=== PATIENT | female | born 1955 | race Caucasian/White ===

== ENCOUNTER → 2018-05-31 14:20 | Outpatient (CLI) | payer MEDICARE, SELFPAY ==
--- NOTE | 2018-05-31 | DI.RAD.S_ITS ---
PROCEDURE: XR SHOULDER RT MIN 2V INDICATIONS: C-SPINE/R SHOULDER PAIN TECHNIQUE: 3 views of the shoulder were acquired. COMPARISON: None. FINDINGS: Bones: No fractures or dislocations, but there is severe degenerative osteoarthritic change at the glenohumeral joint with near [id number]-lr-[id number] articulation. Prior a.c. joint acromioplasty appears to have been performed. No suspicious bony lesions. Visualized ribs appear intact. Soft tissues: No suspicious soft tissue calcifications. IMPRESSION: Very severe glenohumeral joint osteoarthritis with near [id number] articulation, prior right shoulder acromioplasty at the a.c. joint. Dictated by: Modesto Waters M.D. on 05/31/2018 at 15:08 Approved by: Modesto Waters M.D. on 05/31/2018 at 15:08
--- NOTE | 2018-05-31 | DI.RAD.S_ITS ---
PROCEDURE: XR CERVICAL SPINE 2V OR 3V INDICATIONS: CSPINE/R SHOULDER PAIN TECHNIQUE: 3 view(s) of the cervical spine were acquired. COMPARISON: None. FINDINGS: Bones: No fractures or dislocations to the T1 level. The lateral masses of C1 appear intact on the odontoid view. No suspicious bony lesions. Prior cervical spine plain films are not available for review. Ral projection there may be congenital or acquired fusion along the left facet joints, seen from the T2 level inferiorly to the T5 level on the lateral projection. On the lateral projection there is a osseous fusion between C4 and C5, without operative changes and therefore this could represent a congenital anomaly contributing to reduced mobility through the neck. Moderate C5-6 and C6-7 degenerative disc disease is present. Soft tissues: No prevertebral soft tissue swelling. IMPRESSION: Moderate to moderately severe degenerative disc disease and facet osteoarthritis along the cervical spine best seen from C4-C7, with osseous fusion at the C45 intervertebral disc space and what appears to be asymmetric left-sided facet joint effusion from C2-C5. Dictated by: Modesto Waters M.D. on 05/31/2018 at 15:05 Approved by: Modesto Waters M.D. on 05/31/2018 at 15:07
== END ==
PROVIDERS: PCP Family Medicine; Visit Provider Family Medicine
DX: M25.511 Pain in right shoulder (principal); M50.322 Other cervical disc degeneration at C5-C6 level; M47.812 Spondylosis without myelopathy or radiculopathy, cervical region; M19.011 Primary osteoarthritis, right shoulder
CPT/HCPCS: 72040; 73030

== ENCOUNTER → 2018-07-05 09:54 | Outpatient (CLI) | payer MEDICARE, SELFPAY ==
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
== END ==
PROVIDERS: PCP Family Medicine; Visit Provider Family Medicine
DX: M54.2 Cervicalgia (principal); M47.812 Spondylosis without myelopathy or radiculopathy, cervical region; E04.9 Nontoxic goiter, unspecified; Z98.1 Arthrodesis status
CPT/HCPCS: 72141

== ENCOUNTER → 2018-07-09 13:59 | Outpatient (CLI) | payer MEDICARE, SELFPAY ==
--- NOTE | 2018-07-09 | DI.US.S_ITS ---
PROCEDURE: US THYROID INDICATIONS: GOITER TECHNIQUE: Real-time scanning was performed of the thyroid gland, with image documentation. COMPARISON: None. FINDINGS: Right: Thyroid lobe measures 3.3 x 0.8 x 1.1 cm, and is normal in echotexture. Left: Thyroid lobe measures 8.1 x 3.2 x 3.7 cm, and is diffusely heterogeneous and multinodular in echotexture. Isthmus: 4.0 mm thick. Nodule number: 1 Location: Right inferior Size: 0.8 x 0.3 x 0.8 cm. Composition: Predominantly solid Echogenicity: Hypoechoic Shape: wider than tall. Margins: Smooth Echogenic foci: None Total points: 4 ACR TI-RADS category: Moderately suspicious IMPRESSION: Small moderately suspicious right thyroid nodule. Followup ultrasound recommended. Multinodular appearance of the left thyroid gland without a definitive focal nodule. ACR TI-RADS definitions and recommendations: TI-RADS 1 (benign): 0 points. FNA not needed. TI-RADS 2 (not suspicious): 2 points. FNA not needed. TI-RADS 3 (mildly suspicious): 3 points. * FNA if 2.5 cm or larger, follow up if 1.5 cm or larger (at 1, 3, and 5 years). TI-RADS 4 (moderately suspicious): 4-6 points. * FNA if 1.5 cm or larger, follow up if 1 cm or larger (at 1, 2, 3, and 5 years). TI-RADS 5 (highly suspicious): 7 points or more. * FNA if 1 cm or larger, follow up if 0.5 cm or larger (every year for 5 years). Dictated by: Nimesh VIEYRA Interpreted: Lakisha Quintana MD on 07/09/2018 at 16:45 Approved by: Lakisha Quintana M.D. on 07/09/2018 at 17:00
--- NOTE | 2018-07-09 | DI.MG.S_ITS ---
BILATERAL DIGITAL SCREENING MAMMOGRAM 3D/2D WITH CAD: 07/09/2018 CLINICAL: Routine screening. Family history of breast cancer. Comparison is made to exams dated: 05/27/2016 mammogram, 05/14/2015 mammogram, and 05/26/2014 mammogram - [facility]. The tissue of both breasts is predominantly fatty. Current study was also evaluated with a Computer Aided Detection (CAD) system. No significant masses, calcifications, or other findings are seen in either breast. There has been no significant interval change. IMPRESSION: NEGATIVE There is no mammographic evidence of malignancy. A 1 year screening mammogram is recommended. This exam was interpreted at Station ID: [id number]. NOTE: For mammograms, a report in lay terms will be sent to the patient. Approximately 15% of breast malignancies will not be visualized mammographically. In the management of a palpable breast mass, a negative mammogram must not discourage biopsy of a clinically suspicious lesion. Electronically Signed By: Jimmy rainey/horacio:07/09/2018 20:16:26 letter sent: Normal Exam ACR BI-RADS Category 1: Negative 3341F
== END ==
PROVIDERS: PCP Family Medicine; Visit Provider Family Medicine
DX: Z12.31 Encounter for screening mammogram for malignant neoplasm of breast (principal); Z80.3 Family history of malignant neoplasm of breast; E04.9 Nontoxic goiter, unspecified; E03.9 Hypothyroidism, unspecified; M54.2 Cervicalgia
CPT/HCPCS: 76536; 77063; 77067

== ENCOUNTER → 2019-01-24 16:26 | Outpatient (CLI) | payer MEDICARE, SELFPAY ==
--- NOTE | 2019-01-24 | DI.RAD.S_ITS ---
PROCEDURE: XR HIP W PEL IF DONE RT 2V INDICATIONS: RIGHT HIP PAIN TECHNIQUE: 2 views of the hip were acquired. COMPARISON: None. FINDINGS: Bones: No fractures or dislocations. No suspicious bony lesions. The visualized pelvic ring appears intact. Mild right hip joint degeneration. Soft tissues: No suspicious soft tissue calcifications or masses. IMPRESSION: Mild right hip joint degeneration Dictated by: Blaze Floyd M.D. on 01/24/2019 at 17:14 Approved by: Blaze lFoyd M.D. on 01/24/2019 at 17:16
== END ==
PROVIDERS: PCP Family Medicine; Visit Provider Family Medicine
DX: M25.551 Pain in right hip (principal); M16.11 Unilateral primary osteoarthritis, right hip
CPT/HCPCS: 73502

== ENCOUNTER → 2019-02-14 11:55 | Outpatient (CLI) | payer MEDICARE, SELFPAY ==
[2019-02-14 12:50] LABS: BUN Creatinine Ratio 28.6 (6-22); Blood Urea Nitrogen 20 mg/dL (7-17); Calcium 9.7 mg/dL (8.4-10.2); Carbon Dioxide 28 mmol/L (22-32); Chloride 105 mmol/L (98-107); Estimated Glomerular Filt Rate > 60.0 mL/min (>60); Glucose 92 mg/dL (80-110); HEMOLYSIS < 15 (0-50); Potassium 4.7 mmol/L (3.4-5.1); Sodium 141 mmol/L (137-145)
--- NOTE | 2019-02-14 13:36 | DI.CT.S_ITS ---
PROCEDURE: CT SOFT TISSUE NECK W CON INDICATIONS: IODINE DEFICIENCY RELATED GOITER TECHNIQUE: After the administration of intravenous contrast, 3.0 mm axial sections acquired from the sella to the aortic arch. Additional oblique axial 3.0 mm sections acquired through the pharynx. 3 mm thick coronal and sagittal reformats were generated. For radiation dose reduction, the following was used: automated exposure control. COMPARISON: [facility], , THYROID, 07/09/2018, 15:06. FINDINGS: Image quality: Excellent. Lymph nodes: No enlarged lymph nodes seen throughout the neck. Vessels: Visualized vasculature appears patent. Neck spaces: The oropharynx, nasopharynx, and pharynx demonstrate no mucosal lesions. The vocal cords, false vocal cords, pyriform sinuses, epiglottis, vallecula, and tongue base all appear normal. Extramucosal spaces appear unremarkable. Glands: The parotid and submandibular glands appear normal. There is a large, heterogeneous mass arising from the left thyroid lobe measuring 3.8 cm anterior posterior, 4.7 cm transverse and 8.1 cm cephalocaudal. There is mass effect causing deviation of trachea to the right. The mass is seen extending inferiorly to the superior mediastinum.. Miscellaneous: Visualized brain and orbits appear normal. Lung apices appear clear. Superficial soft tissues appear normal. Bones: No suspicious bony lesions. There is degenerative disc and facet disease in cervical spine. Visualized sinuses and mastoids appear unremarkable. IMPRESSION: 1. A large heterogeneous mass arising from the left thyroid gland extending to the superior mediastinum measuring 3.8 x 4.7 x 8.1 cm. 2. No cervical lymphadenopathy. Dictated by: Avel Brown M.D. on 02/14/2019 at 15:35 Approved by: Avel Brown M.D. on 02/14/2019 at 17:58
== END ==
PROVIDERS: PCP Family Medicine; Visit Provider Family Medicine
DX: Z01.812 Encounter for preprocedural laboratory examination (principal); Z01.818 Encounter for other preprocedural examination; E01.0 Iodine-deficiency related diffuse (endemic) goiter
CPT/HCPCS: 36415; 70491; 80048; 82565; 84520; Q9967

== ENCOUNTER → 2019-04-19 14:46 | Outpatient (CLI) | payer MEDICARE, SELFPAY ==
[2019-04-19 15:31] LABS: Add Manual Diff / Slide Review NO; Basophils Absolute Auto 100 /uL (0-100); Eosinophils Absolute Auto 100 /uL (0-450); Eosinophils Percent Auto 2.1 % (2-4); Hematocrit 39.6 % (36-46); Hemoglobin 13.6 g/dL (12.0-16.0); Lymphocytes Absolute Auto 2100 /uL (1100-4500); Lymphocytes Percent Auto 36.5 % (25-40); Mean Corpuscular HGB Conc 34.3 % (30-36); Mean Corpuscular Hemoglobin 30.1 PG (26-34); Mean Corpuscular Volume 87.7 fL (80-100); Monocytes Absolute Auto 300 /uL (0-900); Neutrophils Absolute Auto 3200 /uL (1500-7000); Neutrophils Percent Auto 54.4 % (50-75); Platelet Count 269 X10^3/uL (150-400); Red Blood Cell Count 4.51 X10^6/uL (4.0-5.2); Red Cell Distribution Width 12.8 % (11.6-14.8); White Blood Cell Count 5.8 X10^3/uL (4.5-11.0)
[2019-04-19 15:47] LABS: Alanine Aminotransferase 18 IU/L (<35); Albumin 4.3 g/dL (3.5-5.0); Albumin Globulin Ratio 1.4 (1.0-2.8); Alkaline Phosphatase 84 U/L (38-126); Aspartate Aminotransferase 26 IU/L (14-36); BUN Creatinine Ratio 28.6 (6-22); Bilirubin Total 0.5 mg/dL (0.2-1.3); Blood Urea Nitrogen 20 mg/dL (7-17); Calcium 9.5 mg/dL (8.4-10.2); Carbon Dioxide 27 mmol/L (22-32); Chloride 103 mmol/L (98-107); Estimated Glomerular Filt Rate > 60.0 mL/min (>60); Glucose 87 mg/dL (80-110); HEMOLYSIS < 15 (0-50); Sodium 139 mmol/L (137-145); Total Protein 7.3 g/dL (6.3-8.2)
[2019-04-19 17:29] LABS: Thyroid Stimulating Hormone < 0.02 uIU/mL (0.47-4.68)
[2019-04-19 18:08] LABS: Cancer Antigen 125 < 6 U/mL (0-35)
[2019-04-23 15:29] LABS: Human HE4 Antigen 33 pmol/L
== END ==
PROVIDERS: PCP Family Medicine; Visit Provider Family Medicine
DX: E04.8 Other specified nontoxic goiter (principal); N83.209 Unspecified ovarian cyst, unspecified side; R19.09 Other intra-abdominal and pelvic swelling, mass and lump
CPT/HCPCS: 36415; 80053; 84443; 85025; 86304; 86305

== ENCOUNTER → 2019-08-08 12:12 | Outpatient (CLI) | payer MEDICARE, SELFPAY ==
[2019-08-08 13:45] LABS: Cancer Antigen 125 < 5.5 U/mL (0-35)
[2019-08-10 11:35] LABS: Human Epididymis Prot 4 45.7 pmol/L (0.0-96.5)
== END ==
PROVIDERS: PCP Family Medicine
DX: N83.299 Other ovarian cyst, unspecified side (principal); R19.09 Other intra-abdominal and pelvic swelling, mass and lump; N83.209 Unspecified ovarian cyst, unspecified side
CPT/HCPCS: 36415; 86304; 86305

== ENCOUNTER → 2019-11-15 11:01 | Outpatient (CLI) | payer MEDICARE, SELFPAY ==
[2019-11-15 12:44] LABS: Add Manual Diff / Slide Review NO; Basophils Absolute Auto 100 /uL (0-100); Eosinophils Absolute Auto 100 /uL (0-450); Eosinophils Percent Auto 2.4 % (2-4); Hematocrit 41.6 % (36-46); Hemoglobin 13.9 g/dL (12.0-16.0); Lymphocytes Absolute Auto 2000 /uL (1100-4500); Lymphocytes Percent Auto 33.2 % (25-40); Mean Corpuscular HGB Conc 33.5 % (30-36); Mean Corpuscular Hemoglobin 30.9 PG (26-34); Mean Corpuscular Volume 92.2 fL (80-100); Monocytes Absolute Auto 200 /uL (0-900); Monocytes Percent Auto 3.8 % (3-14); Neutrophils Absolute Auto 3600 /uL (1500-7000); Neutrophils Percent Auto 59.6 % (50-75); Platelet Count 292 X10^3/uL (150-400); Red Blood Cell Count 4.51 X10^6/uL (4.0-5.2); Red Cell Distribution Width 12.6 % (11.6-14.8); White Blood Cell Count 6.1 X10^3/uL (4.5-11.0)
[2019-11-15 12:55] LABS: Alanine Aminotransferase 20 IU/L (<35); Albumin 4.3 g/dL (3.5-5.0); Albumin Globulin Ratio 1.4 (1.0-2.8); Alkaline Phosphatase 86 U/L (38-126); Aspartate Aminotransferase 27 IU/L (14-36); BUN Creatinine Ratio 30.2 (6-22); Bilirubin Total 0.3 mg/dL (0.2-1.3); Blood Urea Nitrogen 26 mg/dL (7-17); Calcium 9.6 mg/dL (8.4-10.2); Carbon Dioxide 28 mmol/L (22-32); Chloride 104 mmol/L (98-107); Estimated Glomerular Filt Rate > 60.0 mL/min (>60); Glucose 107 mg/dL (80-110); HEMOLYSIS < 15 (0-50); Magnesium 2.1 mg/dL (1.6-2.3); Potassium 4.5 mmol/L (3.4-5.1); Sodium 140 mmol/L (137-145); Total Protein 7.3 g/dL (6.3-8.2)
[2019-11-15 13:40] LABS: Vitamin B12 871 pg/mL (239-931)
[2019-11-15 15:45] LABS: T4 Total Thyroxine 8.25 ug/dL (5.5-11.0)
== END ==
PROVIDERS: PCP Family Medicine; Referring Provider Family Medicine; Visit Provider Family Medicine
DX: E53.8 Deficiency of other specified B group vitamins (principal); E55.9 Vitamin D deficiency, unspecified; E03.9 Hypothyroidism, unspecified
CPT/HCPCS: 36415; 80053; 82607; 83001; 83735; 84436; 84443; 85025

== ENCOUNTER → 2019-12-28 12:09 | Outpatient (CLI) | payer MEDICARE, SELFPAY ==
--- NOTE | 2019-12-28 | DI.US.S_ITS ---
PROCEDURE: US PELVIC COMPLETE INDICATIONS: OVARIAN CYST TECHNIQUE: Real-time scanning was performed of the pelvic organs, with image documentation. Additional endovaginal scanning was necessary due to incomplete visualization of the adnexal and endometrial structures by transabdominal scanning. COMPARISON: [facility], US, US PELVIC COMPLETE, 04/19/2019, 16:47. [facility], US, PELVIC COMPLETE, 08/08/2019, 11:48. FINDINGS: Transabdominal scanning: Limited scanning through the kidneys shows no hydronephrosis. No pathologic free abdominal or pelvic fluid. Endovaginal scanning: Uterus is surgically absent Ovaries: A midline ovary is noted although unclear if this is right or left ovary. It measures 6.5 x 4.7 x 5.7 cm. Minimally complex cyst with internal echoes , possibly septation, are noted measuring up to 7.2 x 4.5 x 5.3 cm. IMPRESSION: Large (midline) cystic lesion presumably ovarian in origin as before, technically nonspecific. Cannot exclude cystic ovarian neoplasm and therefore recommend surgical consultation, possibly laparoscopic evaluation. Consider biochemical correlation with CA 125 Dictated by: Blaze Floyd M.D. on 12/28/2019 at 16:38 Approved by: Blaze Floyd M.D. on 12/28/2019 at 16:43
== END ==
PROVIDERS: PCP Family Medicine; Referring Provider Family Medicine; Visit Provider Family Medicine
DX: N83.201 Unspecified ovarian cyst, right side (principal); Z90.710 Acquired absence of both cervix and uterus
CPT/HCPCS: 76830; 76856

== ENCOUNTER → 2020-01-02 10:02 | Outpatient (CLI) | payer MEDICARE, SELFPAY ==
[2020-01-02 10:26] LABS: Hematocrit 41.8 % (36-46); Mean Corpuscular HGB Conc 33.5 % (30-36); Mean Corpuscular Hemoglobin 30.8 PG (26-34); Mean Corpuscular Volume 91.9 fL (80-100); Platelet Count 268 X10^3/uL (150-400); Red Blood Cell Count 4.54 X10^6/uL (4.0-5.2); Red Cell Distribution Width 12.7 % (11.6-14.8); White Blood Cell Count 5.3 X10^3/uL (4.5-11.0)
[2020-01-02 10:37] LABS: BUN Creatinine Ratio 20.7 (6-22); Blood Urea Nitrogen 17 mg/dL (7-17); Calcium 9.7 mg/dL (8.4-10.2); Carbon Dioxide 31 mmol/L (22-32); Chloride 105 mmol/L (98-107); Estimated Glomerular Filt Rate > 60.0 mL/min (>60); Glucose 101 mg/dL (80-110); HEMOLYSIS < 15 (0-50); Potassium 4.9 mmol/L (3.4-5.1); Sodium 141 mmol/L (137-145)
[2020-01-02 10:53] LABS: Neutrophils Absolute Manual 2809 /uL (3000-5900); RBC Morphology Normal Morphology; Total Cells Counted 100
[2020-01-02 11:39] LABS: Thyroid Stimulating Hormone 0.874 uIU/mL (0.47-4.68)
== END ==
PROVIDERS: PCP Family Medicine; Visit Provider Obstetrics & Gynecology Gynecology
DX: E03.9 Hypothyroidism, unspecified (principal)
CPT/HCPCS: 36415; 80048; 84443; 85025

== ENCOUNTER → 2020-04-09 13:05 | Outpatient (CLI) | payer MEDICARE, SELFPAY ==
--- NOTE | 2020-04-09 | DI.MRI.S_ITS ---
PROCEDURE: MR SHOULDER RT WO CON INDICATIONS: Pain in right shoulder TECHNIQUE: Noncontrast oblique coronal T2 fast spin echo with fat saturation, oblique sagittal T1 spin echo and T2 fast spin echo with fat saturation, axial T1 spin echo and T2 fast spin echo with fat saturation through the shoulder. COMPARISON: None. FINDINGS: Image quality: Excellent. Rotator cuff: There is full-thickness tear of the supraspinatus tendon. There is no tendon retraction. High-grade partial thickness tear and tendinitis of the infraspinatus and subscapularis tendons Sagittal images demonstrate mild supraspinatus muscle atrophy. Bones and bursae: No bone marrow contusions or fractures. Severe osteoarthritis of the glenohumeral joint with severe loss of cartilage and subchondral cyst formation. Mild remodeling and deformity of of humeral head. Mild acromioclavicular joint degeneration is present. The acromion demonstrates conventional anatomy, without an os acromiale. There is a small glenohumeral joint effusion. No pathologic subacromial-subdeltoid or subcoracoid bursal fluid is present. Capsule and soft tissues: In the absence of intra-articular contrast, there is degenerative labral tear. The glenohumeral ligaments appear intact. The long head of the biceps tendon demonstrates normal location and morphology. The rotator interval appears normal, without fibrosis. The coracohumeral ligament is normal in thickness. IMPRESSION: 1. Full-thickness tear of the supraspinatus tendon. There is mild supraspinatus muscle atrophy. 2. Partial-thickness tear and tendinitis of the infraspinatus and subscapularis tendons. 3. Severe osteoarthritis of the glenohumeral joint. 4. Degenerative labral tear. 5. Small glenohumeral joint effusion. Dictated by: Avel Brown M.D. on 04/09/2020 at 13:48 Approved by: Avel Brown M.D. on 04/09/2020 at 18:37
[2020-04-09 16:03] LABS: Add Manual Diff / Slide Review NO; Basophils Absolute Auto 100 /uL (0-100); Basophils Percent Auto 1.8 % (0-2); Eosinophils Absolute Auto 100 /uL (0-450); Eosinophils Percent Auto 2.4 % (2-4); Hematocrit 41.8 % (36-46); Hemoglobin 13.8 g/dL (12.0-16.0); Lymphocytes Absolute Auto 2100 /uL (1100-4500); Lymphocytes Percent Auto 38.5 % (25-40); Mean Corpuscular Hemoglobin 29.8 PG (26-34); Mean Corpuscular Volume 90.3 fL (80-100); Monocytes Absolute Auto 300 /uL (0-900); Monocytes Percent Auto 5.9 % (3-14); Neutrophils Absolute Auto 2800 /uL (1500-7000); Neutrophils Percent Auto 51.4 % (50-75); Platelet Count 300 X10^3/uL (150-400); Red Blood Cell Count 4.63 X10^6/uL (4.0-5.2); White Blood Cell Count 5.5 X10^3/uL (4.5-11.0)
[2020-04-09 16:16] LABS: Alanine Aminotransferase 16 IU/L (<35); Albumin 4.4 g/dL (3.5-5.0); Albumin Globulin Ratio 1.6 (1.0-2.8); Alkaline Phosphatase 93 U/L (38-126); Aspartate Aminotransferase 26 IU/L (14-36); BUN Creatinine Ratio 26.3 (6-22); Bilirubin Total 0.2 mg/dL (0.2-1.3); Blood Urea Nitrogen 20 mg/dL (7-17); Calcium 9.4 mg/dL (8.4-10.2); Carbon Dioxide 26 mmol/L (22-32); Chloride 106 mmol/L (98-107); Estimated Glomerular Filt Rate > 60.0 mL/min (>60); Globulin 2.8 g/dL (1.7-4.1); Glucose 95 mg/dL (80-110); HEMOLYSIS < 15 (0-50); Potassium 4.4 mmol/L (3.4-5.1); Sodium 137 mmol/L (137-145); Total Protein 7.2 g/dL (6.3-8.2)
[2020-04-09 16:49] LABS: Free T3, Triiodothyronine Free 3.23 pg/mL (2.77-5.27); Free T4, Direct Thyroxine 1.31 ng/dL (0.78-2.19)
[2020-04-09 17:02] LABS: Thyroid Stimulating Hormone 0.316 uIU/mL (0.47-4.68)
== END ==
PROVIDERS: PCP Family Medicine; Referring Provider Family Medicine; Visit Provider Family Medicine
DX: M25.511 Pain in right shoulder (principal); M75.121 Complete rotator cuff tear or rupture of right shoulder, not specified as traumatic; M19.011 Primary osteoarthritis, right shoulder; M25.411 Effusion, right shoulder; S43.491A Other sprain of right shoulder joint, initial encounter; E53.8 Deficiency of other specified B group vitamins; E03.9 Hypothyroidism, unspecified; E55.9 Vitamin D deficiency, unspecified; R53.81 Other malaise; Z79.899 Other long term (current) drug therapy
CPT/HCPCS: 36415; 73221; 80053; 84439; 84443; 84481; 85025

== ENCOUNTER → 2020-07-03 16:52 | Outpatient (CLI) | payer MEDICARE, SELFPAY ==
--- NOTE | 2020-07-03 16:57 | DI.MG.S_ITS ---
BILATERAL DIGITAL SCREENING MAMMOGRAM 3D/2D WITH CAD: 07/03/2020 CLINICAL: Routine screening. Family history of breast cancer. Comparison is made to exams dated: 07/09/2018 mammogram - [facility], 05/27/2016 mammogram, and 05/14/2015 mammogram - [facility]. There are scattered fibroglandular elements in both breasts. Current study was also evaluated with a Computer Aided Detection (CAD) system. No significant masses, calcifications, or other findings are seen in either breast. There has been no significant interval change. IMPRESSION: NEGATIVE There is no mammographic evidence of malignancy. A 1 year screening mammogram is recommended. This exam was interpreted at Station ID: [id number]. NOTE: For mammograms, a report in lay terms will be sent to the patient. Approximately 15% of breast malignancies will not be visualized mammographically. In the management of a palpable breast mass, a negative mammogram must not discourage biopsy of a clinically suspicious lesion. Electronically Signed By: Jimmy rainey/horacio:07/03/2020 17:31:29 letter sent: Normal Exam ACR BI-RADS Category 1: Negative 3341F
== END ==
PROVIDERS: PCP Family Medicine; Referring Provider Family Medicine; Visit Provider Family Medicine
DX: Z12.31 Encounter for screening mammogram for malignant neoplasm of breast (principal); Z80.3 Family history of malignant neoplasm of breast
CPT/HCPCS: 77063; 77067

== ENCOUNTER → 2020-09-21 10:45 | Outpatient (CLI) | payer MEDICARE, SELFPAY ==
[2020-09-21 12:11] LABS: Add Manual Diff / Slide Review NO; Basophils Absolute Auto 100 /uL (0-100); Basophils Percent Auto 1.5 % (0-2); Eosinophils Absolute Auto 200 /uL (0-450); Hematocrit 38.8 % (36-46); Hemoglobin 13.3 g/dL (12.0-16.0); Lymphocytes Absolute Auto 1800 /uL (1100-4500); Lymphocytes Percent Auto 32.7 % (25-40); Mean Corpuscular HGB Conc 34.2 % (30-36); Mean Corpuscular Hemoglobin 30.6 PG (26-34); Mean Corpuscular Volume 89.4 fL (80-100); Monocytes Absolute Auto 300 /uL (0-900); Monocytes Percent Auto 5.7 % (3-14); Neutrophils Absolute Auto 3100 /uL (1500-7000); Neutrophils Percent Auto 57.1 % (50-75); Platelet Count 276 X10^3/uL (150-400); Red Blood Cell Count 4.33 X10^6/uL (4.0-5.2); White Blood Cell Count 5.4 X10^3/uL (4.5-11.0)
[2020-09-21 12:13] LABS: Appearance Urine UA CLEAR; Bilirubin Urine UA NEGATIVE (NEGATIVE); Color Urine UA YELLOW; Glucose Urine UA NEGATIVE (Negative); Ketones Urine UA NEGATIVE (NEGATIVE); Leukocyte Esterase Urine UA TRACE (NEGATIVE); Nitrite Urine UA NEGATIVE (Negative); Occult Blood Urine UA NEGATIVE (Negative); Protein Urine UA NEGATIVE (Negative); Specific Gravity Urine UA 1.015 (1.000-1.035); Urobilinogen Urine UA 0.2 E.U./dL (0.2)
[2020-09-21 12:15] LABS: Bacteria Urine None Seen; RBC Urine None Seen (0-5/HPF)
[2020-09-21 12:16] LABS: PTT Partial Thromboplastin Tim 32 SECONDS (26.4-36.2)
[2020-09-21 12:27] LABS: Hemoglobin A1C% w Est Avg Glu 5.4 % (4.0-6.0)
[2020-09-21 12:29] LABS: Alanine Aminotransferase 19 IU/L (<35); Albumin 4.2 g/dL (3.5-5.0); Albumin Globulin Ratio 1.6 (1.0-2.8); Alkaline Phosphatase 84 U/L (38-126); Aspartate Aminotransferase 28 IU/L (14-36); Bilirubin Total 0.5 mg/dL (0.2-1.3); Blood Urea Nitrogen 19 mg/dL (7-17); Calcium 9.8 mg/dL (8.4-10.2); Carbon Dioxide 24 mmol/L (22-32); Chloride 108 mmol/L (98-107); Cholesterol 214 mg/dL (140-199); Estimated Glomerular Filt Rate > 60.0 mL/min (>60); Globulin 2.6 g/dL (1.7-4.1); Glucose 99 mg/dL (80-110); HDL Cholesterol 63 mg/dL (40-60); HEMOLYSIS < 15 (0-50); LDL Cholesterol Calculated 130 mg/dL (<100); Potassium 4.5 mmol/L (3.4-5.1); Sodium 140 mmol/L (137-145); Total Protein 6.8 g/dL (6.3-8.2); Triglycerides 103 mg/dL (35-150)
[2020-09-21 12:37] LABS: Amorphous Sediment Urine 1+; Culture Indicated Urine Cult Not Indicated; Squamous Epithelial Cell Urine 1-5 /HPF (0-5/HPF); WBC Urine 0-1/HPF (0-5/HPF)
[2020-09-21 12:45] LABS: Vitamin D 25 Hydroxy (D3) 40.4 ng/mL (30.0-100.0)
[2020-09-21 12:59] LABS: Thyroid Stimulating Hormone 2.18 uIU/mL (0.47-4.68)
[2020-09-21 13:19] LABS: Vitamin B12 818 pg/mL (239-931)
== END ==
PROVIDERS: PCP Family Medicine; Referring Provider Family Medicine; Visit Provider Family Medicine
DX: E03.9 Hypothyroidism, unspecified (principal); Z03.818 Encounter for observation for suspected exposure to other biological agents ruled out; E55.9 Vitamin D deficiency, unspecified; I10 Essential (primary) hypertension; E53.8 Deficiency of other specified B group vitamins; M25.511 Pain in right shoulder; R53.81 Other malaise; Z79.899 Other long term (current) drug therapy; Z01.812 Encounter for preprocedural laboratory examination; D68.51 Activated protein C resistance; D68.2 Hereditary deficiency of other clotting factors
CPT/HCPCS: 36415; 80053; 80061; 81003; 81015; 82306; 82607; 83036; 84443; 85025; 85730

== ENCOUNTER → 2021-04-30 15:20 | Outpatient (CLI) | payer MEDICARE, SELFPAY ==
[2021-04-30 16:45] LABS: Add Manual Diff / Slide Review NO; Basophils Absolute Auto 100 /uL (0-100); Eosinophils Absolute Auto 100 /uL (0-450); Hematocrit 42.3 % (36-46); Hemoglobin 14.3 g/dL (12.0-16.0); Lymphocytes Absolute Auto 2000 /uL (1100-4500); Lymphocytes Percent Auto 30.5 % (25-40); Mean Corpuscular HGB Conc 33.8 % (30-36); Mean Corpuscular Hemoglobin 29.8 PG (26-34); Monocytes Absolute Auto 300 /uL (0-900); Monocytes Percent Auto 5.1 % (3-14); Neutrophils Absolute Auto 4000 /uL (1500-7000); Neutrophils Percent Auto 61.4 % (50-75); Platelet Count 320 X10^3/uL (150-400); Red Cell Distribution Width 13.5 % (11.6-14.8); White Blood Cell Count 6.6 X10^3/uL (4.5-11.0)
[2021-04-30 16:56] LABS: Alanine Aminotransferase 20 IU/L (<35); Albumin 4.7 g/dL (3.5-5.0); Albumin Globulin Ratio 1.5 (1.0-2.8); Alkaline Phosphatase 100 U/L (38-126); Aspartate Aminotransferase 29 IU/L (14-36); BUN Creatinine Ratio 20.6 (6-22); Bilirubin Total 0.5 mg/dL (0.2-1.3); Blood Urea Nitrogen 20 mg/dL (7-17); Calcium 9.8 mg/dL (8.4-10.2); Carbon Dioxide 26 mmol/L (22-32); Chloride 106 mmol/L (98-107); Cholesterol 224 mg/dL (140-199); Estimated Glomerular Filt Rate 57.3 mL/min (>60); Globulin 3.2 g/dL (1.7-4.1); Glucose 107 mg/dL (80-110); HDL Cholesterol 59 mg/dL (40-60); HEMOLYSIS < 15 (0-50); LDL Cholesterol Calculated 139 mg/dL (<100); Potassium 4.5 mmol/L (3.4-5.1); Sodium 141 mmol/L (137-145); Total Protein 7.9 g/dL (6.3-8.2); Triglycerides 131 mg/dL (35-150)
[2021-04-30 17:13] LABS: Vitamin D 25 Hydroxy (D3) 39.3 ng/mL (30.0-100.0)
[2021-04-30 17:26] LABS: TSH w/ Reflex to FT4 1.97 uIU/mL (0.47-4.68)
[2021-04-30 18:02] LABS: Folate 12.8 ng/mL (2.76-20.0); Vitamin B12 801 pg/mL (239-931)
== END ==
PROVIDERS: PCP Family Medicine; Referring Provider Family Medicine; Visit Provider Family Medicine
DX: E03.9 Hypothyroidism, unspecified (principal); E55.9 Vitamin D deficiency, unspecified; R53.81 Other malaise; D68.2 Hereditary deficiency of other clotting factors; Z79.899 Other long term (current) drug therapy
CPT/HCPCS: 36415; 80053; 80061; 82306; 82607; 82746; 84443; 85025

== ENCOUNTER → 2021-07-15 14:00 | Outpatient (CLI) | payer MEDICARE, SELFPAY ==
--- NOTE | 2021-07-15 14:04 | DI.MG.S_ITS ---
BILATERAL DIGITAL SCREENING MAMMOGRAM 3D/2D WITH CAD: 07/15/2021 CLINICAL: Routine screening. Family history of breast cancer. Comparison is made to exams dated: 07/03/2020 mammogram, 07/09/2018 mammogram - [facility], and 05/27/2016 mammogram - [facility]. There are scattered fibroglandular elements in both breasts. Current study was also evaluated with a Computer Aided Detection (CAD) system. No significant masses, calcifications, or other findings are seen in either breast. There has been no significant interval change. IMPRESSION: NEGATIVE There is no mammographic evidence of malignancy. A 1 year screening mammogram is recommended. This exam was interpreted at Station ID: [id number]. NOTE: For mammograms, a report in lay terms will be sent to the patient. Approximately 15% of breast malignancies will not be visualized mammographically. In the management of a palpable breast mass, a negative mammogram must not discourage biopsy of a clinically suspicious lesion. Electronically Signed By: Sabine alarcon/horacio:07/15/2021 14:35:06 letter sent: Normal Exam ACR BI-RADS Category 1: Negative 3341F
== END ==
PROVIDERS: PCP Family Medicine; Referring Provider Family Medicine; Visit Provider Family Medicine
DX: Z12.31 Encounter for screening mammogram for malignant neoplasm of breast (principal); Z80.3 Family history of malignant neoplasm of breast
CPT/HCPCS: 77063; 77067

== ENCOUNTER → 2021-08-09 10:32 | Outpatient (CLI) | payer MEDICARE, SELFPAY ==
--- NOTE | 2021-08-09 | DI.RAD.S_ITS ---
PROCEDURE: XR CHEST 2V INDICATIONS: PREPROCEDURE EXAM TECHNIQUE: 2 views of the chest were acquired. COMPARISON: None. FINDINGS: Surgical changes and devices: Left shoulder reverse arthroplasty. Lungs and pleura: Lungs are clear. No pleural effusions or pneumothorax. Mediastinum: Mediastinal contours are normal. Heart size is normal. Bones and chest wall: No suspicious bony abnormalities. Soft tissues appear unremarkable. IMPRESSION: No acute cardiopulmonary disease process. Dictated by: Jolanta Calabrese MD, PhD on 08/09/2021 at 15:22 Approved by: Jolanta Calabrese MD, PhD on 08/09/2021 at 15:23
[2021-08-09 11:26] LABS: Add Manual Diff / Slide Review NO; Basophils Absolute Auto 100 /uL (0-100); Basophils Percent Auto 1.2 % (0-2); Eosinophils Absolute Auto 100 /uL (0-450); Eosinophils Percent Auto 1.9 % (2-4); Hematocrit 40.3 % (36-46); Hemoglobin 13.6 g/dL (12.0-16.0); Lymphocytes Absolute Auto 1900 /uL (1100-4500); Lymphocytes Percent Auto 31.2 % (25-40); Mean Corpuscular HGB Conc 33.9 % (30-36); Mean Corpuscular Hemoglobin 29.8 PG (26-34); Mean Corpuscular Volume 87.9 fL (80-100); Monocytes Absolute Auto 400 /uL (0-900); Monocytes Percent Auto 6.1 % (3-14); Neutrophils Absolute Auto 3700 /uL (1500-7000); Neutrophils Percent Auto 59.6 % (50-75); Platelet Count 285 X10^3/uL (150-400); Red Blood Cell Count 4.58 X10^6/uL (4.0-5.2); Red Cell Distribution Width 13.3 % (11.6-14.8); White Blood Cell Count 6.2 X10^3/uL (4.5-11.0)
[2021-08-09 11:40] LABS: INR 1.1 (0.9-1.3); Prothrombin Time 11.8 SECONDS (10.1-12.7)
[2021-08-09 11:42] LABS: PTT Partial Thromboplastin Tim 32 SECONDS (26.4-36.2)
[2021-08-09 11:47] LABS: Alanine Aminotransferase 18 IU/L (<35); Albumin 4.4 g/dL (3.5-5.0); Albumin Globulin Ratio 1.4 (1.0-2.8); Alkaline Phosphatase 90 U/L (38-126); Aspartate Aminotransferase 28 IU/L (14-36); BUN Creatinine Ratio 22.7 (6-22); Bilirubin Total 0.4 mg/dL (0.2-1.3); Blood Urea Nitrogen 20 mg/dL (7-17); Calcium 9.4 mg/dL (8.4-10.2); Carbon Dioxide 26 mmol/L (22-32); Chloride 107 mmol/L (98-107); Estimated Glomerular Filt Rate > 60 mL/min (>60); Globulin 3.1 g/dL (1.7-4.1); Glucose 105 mg/dL (80-110); HEMOLYSIS < 15 (0-50); Potassium 4.5 mmol/L (3.4-5.1); Sodium 139 mmol/L (137-145); Total Protein 7.5 g/dL (6.3-8.2)
== END ==
PROVIDERS: PCP Family Medicine; Referring Provider Family Medicine; Visit Provider Family Medicine
DX: Z01.818 Encounter for other preprocedural examination (principal); M12.89 Other specific arthropathies, not elsewhere classified, multiple sites; E53.8 Deficiency of other specified B group vitamins; Z79.899 Other long term (current) drug therapy; E03.9 Hypothyroidism, unspecified
CPT/HCPCS: 36415; 71046; 80053; 85025; 85610; 85730

== ENCOUNTER → 2021-08-13 17:41 | Outpatient (CLI) | payer MEDICARE, SELFPAY ==
[2021-08-13 19:13] LABS: Thyroid Stimulating Hormone 0.106 uIU/mL (0.47-4.68)
[2021-08-15 18:10] LABS: Anti Thyroglobulin Antibody <1.0 IU/mL (0.0-0.9); Thyroid Peroxidase Antibodies 21 IU/mL (0-34)
== END ==
PROVIDERS: PCP Family Medicine; Referring Provider Family Medicine; Visit Provider Family Medicine
DX: E03.9 Hypothyroidism, unspecified (principal); Z01.818 Encounter for other preprocedural examination
CPT/HCPCS: 36415; 84443; 86376; 86800

== ENCOUNTER → 2022-06-20 12:44 | Outpatient (CLI) | payer OTHER, SELFPAY ==
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
== END ==
PROVIDERS: PCP Family Medicine; Referring Provider Internal Medicine; Visit Provider Internal Medicine
DX: M47.812 Spondylosis without myelopathy or radiculopathy, cervical region (principal); S13.4XXA Sprain of ligaments of cervical spine, initial encounter
CPT/HCPCS: 72040

== ENCOUNTER → 2022-07-18 13:00 | Outpatient (CLI) | payer MEDICARE, SELFPAY ==
--- NOTE | 2022-07-18 | DI.MG.S_ITS ---
BILATERAL DIGITAL SCREENING MAMMOGRAM 3D/2D WITH CAD: 07/18/2022 CLINICAL: Routine screening. Family history of breast cancer. Comparison is made to exams dated: 07/15/2021 mammogram, 07/03/2020 mammogram, and 07/09/2018 mammogram - . There are scattered areas of fibroglandular density in both breasts (category b / 25%-50% glandular tissue). Current study was also evaluated with a Computer Aided Detection (CAD) system. No significant masses, calcifications, or other findings are seen in either breast. There has been no significant interval change. IMPRESSION: NEGATIVE There is no mammographic evidence of malignancy. A 1 year screening mammogram is recommended. Based on the Tyrer Cuzick model (a risk assessment model) the patient's lifetime risk is 7.0% and her 10 year risk is 4.1%. According to the ACR, ACS, and NCCN guidelines, an annual breast MRI exam along with mammogram is recommended if the patient's lifetime risk is 20% or greater. This exam was interpreted at Station ID: [id number]. NOTE: For mammograms, a report in lay terms will be sent to the patient. Approximately 15% of breast malignancies will not be visualized mammographically. In the management of a palpable breast mass, a negative mammogram must not discourage biopsy of a clinically suspicious lesion. Electronically Signed By: Sabine alarcon/horacio:07/18/2022 13:51:48 letter sent: Normal Exam ACR BI-RADS Category 1: Negative 3341F
== END ==
PROVIDERS: PCP Family Medicine; Referring Provider Family Medicine; Visit Provider Family Medicine
DX: Z12.31 Encounter for screening mammogram for malignant neoplasm of breast (principal); Z80.3 Family history of malignant neoplasm of breast
CPT/HCPCS: 77063; 77067

== ENCOUNTER → 2022-10-07 10:00 | Outpatient (CLI) | payer MEDICARE, SELFPAY ==
[2022-10-07 11:09] LABS: Add Manual Diff / Slide Review NO; Basophils Absolute Auto 100 /uL (0-100); Basophils Percent Auto 1.4 % (0-2); Eosinophils Absolute Auto 100 /uL (0-450); Eosinophils Percent Auto 2.2 % (2-4); Hematocrit 39.3 % (36-46); Hemoglobin 13.3 g/dL (12.0-16.0); Lymphocytes Absolute Auto 1600 /uL (1100-4500); Mean Corpuscular HGB Conc 33.8 % (30-36); Monocytes Absolute Auto 300 /uL (0-900); Monocytes Percent Auto 6.2 % (3-14); Neutrophils Absolute Auto 2900 /uL (1500-7000); Neutrophils Percent Auto 58.2 % (50-75); Platelet Count 261 X10^3/uL (150-400); Red Blood Cell Count 4.42 X10^6/uL (4.0-5.2); Red Cell Distribution Width 13.3 % (11.6-14.8); White Blood Cell Count 4.9 X10^3/uL (4.5-11.0)
[2022-10-07 11:29] LABS: Alanine Aminotransferase 20 IU/L (<35); Albumin 4.4 g/dL (3.5-5.0); Albumin Globulin Ratio 1.5 (1.0-2.8); Alkaline Phosphatase 88 U/L (38-126); Aspartate Aminotransferase 27 IU/L (14-36); BUN Creatinine Ratio 27.7 (6-22); Bilirubin Total 0.4 mg/dL (0.2-1.3); Blood Urea Nitrogen 23 mg/dL (7-17); C-Reactive Protein Quant < 0.5 mg/dL (<1.0); Calcium 9.2 mg/dL (8.4-10.2); Carbon Dioxide 29 mmol/L (22-32); Chloride 105 mmol/L (98-107); Cholesterol 134 mg/dL (140-199); Estimated Glomerular Filt Rate > 60 mL/min (>60); Globulin 2.9 g/dL (1.7-4.1); Glucose 100 mg/dL (80-110); HDL Cholesterol 51 mg/dL (40-60); HEMOLYSIS < 15 (0-50); LDL Cholesterol Calculated 65 mg/dL (<100); Potassium 4.3 mmol/L (3.4-5.1); Sodium 140 mmol/L (137-145); Total Protein 7.3 g/dL (6.3-8.2); Triglycerides 89 mg/dL (35-150)
[2022-10-07 11:34] LABS: Rheumatoid Factor < 8.6 IU/mL (<12.0)
[2022-10-07 11:37] LABS: Erythrocyte Sedimentation Rate 8 MM/HR (0-20)
[2022-10-07 12:14] LABS: Vitamin B12 378 pg/mL (239-931)
[2022-10-07 12:18] LABS: Thyroid Stimulating Hormone 0.574 uIU/mL (0.47-4.68)
[2022-10-07 12:38] LABS: Vitamin D 25 Hydroxy (D3) 49.4 ng/mL (30.0-100.0)
[2022-10-09 17:55] LABS: ANA Screen, IFA Negative (.)
== END ==
PROVIDERS: PCP Family Medicine; Referring Provider Family Medicine; Visit Provider Family Medicine
DX: M54.10 Radiculopathy, site unspecified (principal); E03.9 Hypothyroidism, unspecified; E55.9 Vitamin D deficiency, unspecified; D68.2 Hereditary deficiency of other clotting factors; D68.51 Activated protein C resistance; E53.8 Deficiency of other specified B group vitamins; M12.89 Other specific arthropathies, not elsewhere classified, multiple sites; Z79.899 Other long term (current) drug therapy; E78.49 Other hyperlipidemia
CPT/HCPCS: 36415; 80053; 80061; 82306; 82607; 84443; 85025; 85651; 86038; 86140; 86430

== ENCOUNTER → 2023-03-20 13:26 | Outpatient (CLI) | payer MEDICARE, SELFPAY ==
[2023-03-20 15:46] LABS: Thyroid Stimulating Hormone 1.42 uIU/mL (0.47-4.68)
== END ==
PROVIDERS: PCP Family Medicine; Referring Provider Family Medicine; Visit Provider Family Medicine
DX: E03.9 Hypothyroidism, unspecified (principal); D68.51 Activated protein C resistance
CPT/HCPCS: 36415; 84443

== ENCOUNTER → 2023-06-07 15:20 | Outpatient (CLI) | payer MEDICARE, SELFPAY ==
--- NOTE | 2023-06-07 | DI.MRI.S_ITS ---
PROCEDURE: MR KNEE RT WO CON INDICATIONS: Pain in right knee TECHNIQUE: Noncontrast sagittal PD fast spin echo and T2 fast spin echo with fat saturation, sagittal 3-D FLASH with fat saturation; coronal T1 spin echo and PD fast spin echo with fat saturation, and axial PD fast spin echo with fat saturation through the knee. COMPARISON: None. FINDINGS: Image quality: Moderate motion artifact Menisci: Medial: Oblique tear of the medial meniscus, particularly involving the body and posterior horn. Lateral: Horizontal complex tear involving the anterior horn and body. Cruciate ligaments: Intact Medial structures: MCL: Mild periligamentous edema Pes anserine tendons: Moderate bursitis Semimembranosus: Intact Lateral structures: LCL: Gshq-pu-uzelkddc proximal edema Biceps femoris: Intact IT band: Intact Popliteus tendon: Mild insertional tendinopathy Anterior structures: Extensor mechanism: Intact Fat pads: There is edema anterior to the tibial tuberosity. There is also moderate edema Hoffa's fat pad Medial retinaculum: Intact. Trochlea: Unremarkable morphology. Bone and joint: Bones: No acute fracture Cartilage: Advanced degenerative changes of the patellofemoral compartment, with full-thickness cartilage defects and subchondral edema, particularly involving the lateral facet and median ridge of the patella. Moderate cartilage loss is seen elsewhere, particularly in the medial compartment. Joint space: Simu-bc-iclwuhst joint effusion Scott's cyst: Moderate septated Scott's cyst Soft tissues: Unremarkable IMPRESSION: Complex meniscal tears as above. Cruciate ligaments are intact. Possible sprains versus prior injury with remodeling of the collateral ligaments. Pes anserine bursitis and possible partial tears, particularly of the sartorius. Edema anterior to the tibial tuberosity. Moderate edema Hoffa's fat pad. Advanced degenerative changes, particularly involving the medial and patellofemoral compartments. Subchondral edema is seen in the patellar median ridge and lateral facet. Vawt-ag-wezpgbrf joint effusion and moderate Scott's cyst with septations. Dictated by: Alessandro Alcantara M.D. on 06/08/2023 at 10:25 Approved by: Alessandro Alcantara M.D. on 06/08/2023 at 10:31
== END ==
LOC: MRI 15:22
PROVIDERS: PCP Family Medicine; Referring Provider Family Medicine; Visit Provider Family Medicine
DX: S83.271A Complex tear of lateral meniscus, current injury, right knee, initial encounter (principal); S83.241A Other tear of medial meniscus, current injury, right knee, initial encounter; S80.01XA Contusion of right knee, initial encounter; M71.561 Other bursitis, not elsewhere classified, right knee; M79.4 Hypertrophy of (infrapatellar) fat pad; M25.461 Effusion, right knee; M71.21 Synovial cyst of popliteal space [Baker], right knee; M25.561 Pain in right knee
CPT/HCPCS: 73721

== ENCOUNTER → 2023-06-09 11:17 | Outpatient (CLI) | payer MEDICARE, SELFPAY ==
[2023-06-09 12:27] LABS: Add Manual Diff / Slide Review NO; Basophils Absolute Auto 100 /uL (0-100); Basophils Percent Auto 1.4 % (0-2); Eosinophils Absolute Auto 100 /uL (0-450); Eosinophils Percent Auto 2.9 % (2-4); Hematocrit 37.2 % (36-46); Hemoglobin 12.8 g/dL (12.0-16.0); Lymphocytes Absolute Auto 1700 /uL (1100-4500); Lymphocytes Percent Auto 32.5 % (25-40); Mean Corpuscular HGB Conc 34.3 % (30-36); Mean Corpuscular Hemoglobin 30.2 PG (26-34); Mean Corpuscular Volume 87.9 fL (80-100); Monocytes Absolute Auto 300 /uL (0-900); Monocytes Percent Auto 5.9 % (3-14); Neutrophils Absolute Auto 3000 /uL (1500-7000); Neutrophils Percent Auto 57.3 % (50-75); Platelet Count 306 X10^3/uL (150-400); Red Blood Cell Count 4.23 X10^6/uL (4.0-5.2); Red Cell Distribution Width 12.9 % (11.6-14.8); White Blood Cell Count 5.2 X10^3/uL (4.5-11.0)
[2023-06-09 13:07] LABS: Alanine Aminotransferase 23 IU/L (<35); Albumin 4.2 g/dL (3.5-5.0); Albumin Globulin Ratio 1.4 (1.0-2.8); Alkaline Phosphatase 81 U/L (38-126); Aspartate Aminotransferase 46 IU/L (14-36); Bilirubin Total 0.7 mg/dL (0.2-1.3); Blood Urea Nitrogen 18 mg/dL (7-17); Calcium 9.4 mg/dL (8.4-10.2); Carbon Dioxide 26 mmol/L (22-32); Chloride 108 mmol/L (98-107); Cholesterol 141 mg/dL (140-199); Estimated Glomerular Filt Rate > 60 mL/min (>60); Glucose 101 mg/dL (80-110); HDL Cholesterol 63 mg/dL (40-60); HEMOLYSIS < 15 (0-50); LDL Cholesterol Calculated 60 mg/dL (<100); Potassium 3.9 mmol/L (3.4-5.1); Sodium 139 mmol/L (137-145); Total Protein 7.2 g/dL (6.3-8.2); Triglycerides 89 mg/dL (35-150)
[2023-06-09 13:28] LABS: Vitamin D 25 Hydroxy (D3) 48.8 ng/mL (30.0-100.0)
[2023-06-09 13:34] LABS: Thyroid Stimulating Hormone 1.69 uIU/mL (0.47-4.68)
[2023-06-09 13:53] LABS: Vitamin B12 375 pg/mL (239-931)
== END ==
LOC: LAB 11:19
PROVIDERS: PCP Family Medicine; Referring Provider Family Medicine; Visit Provider Family Medicine
DX: D68.2 Hereditary deficiency of other clotting factors (principal); E03.9 Hypothyroidism, unspecified; M25.511 Pain in right shoulder; E55.9 Vitamin D deficiency, unspecified; D68.51 Activated protein C resistance; E53.8 Deficiency of other specified B group vitamins; M12.819 Other specific arthropathies, not elsewhere classified, unspecified shoulder
CPT/HCPCS: 36415; 80053; 80061; 82306; 82607; 83735; 84443; 85025

== ENCOUNTER 2023-07-08 14:04 | Emergency (ER) | payer MEDICARE, SELFPAY ==
[2023-07-08 14:27] VITALS: BP 140/72; PULSE 68; RESP 18; TEMP 36.5; O2SAT 98; BMI 40.7
--- NOTE | 2023-07-08 14:39 | DI.CT.S_ITS ---
PROCEDURE: CT CERVICAL SPINE WO CON INDICATIONS: fall w/ facial injury TECHNIQUE: Noncontrast 3 mm thick sections acquired from the skull base to the T4 level. Sagittal and coronal reformats were then constructed. For radiation dose reduction, the following was used: automated exposure control, adjustment of mA and/or kV according to patient size. COMPARISON: [facility], CR, XR CERVICAL SPINE 2V OR 3V, 06/20/2022, 13:08. [facility], CT, CT FACIAL BONES WO CON, 07/08/2023, 14:45. [facility], CT, CT HEAD/BRAIN WO CON, 07/08/2023, 14:45. FINDINGS: Image quality: Excellent. Bones: No fractures or dislocations. Visualized superior ribs are intact. Focal degenerative change is seen involving the C1-C2 interface anteriorly. There is at least moderate disc space narrowing seen at C4-C5, C5-C6, C6-C7, and C7-T1. Moderate generalized degenerative change can be seen involving the visualized superior cervical spine. Multiple levels of facet hypertrophy can be seen, with several levels of facet fusion. Soft tissues: Prevertebral soft tissues are normal in thickness. No paravertebral hematomas. No apical pneumothoraces. Thyroidectomy change can be seen, with left-sided neck soft tissue clips. IMPRESSION: No displaced fracture or traumatic subluxation. Multiple levels of significant underlying degenerative change can be seen, which are overall worst involving the lower cervical spine. Dictated by: Sudhir Rice M.D. on 07/08/2023 at 14:13 Approved by: Sudhir Rice M.D. on 07/08/2023 at 14:15
--- NOTE | 2023-07-08 14:39 | DI.CT.S_ITS ---
PROCEDURE: CT HEAD/BRAIN WO CON INDICATIONS: fall from standing facial injury TECHNIQUE: Noncontrast 4.5 mm thick angled axial sections acquired from the foramen magnum to the vertex, with coronal and sagittal reformats. For radiation dose reduction, the following was used: automated exposure control, adjustment of mA and/or kV according to patient size. COMPARISON: [facility], CT, CT CERVICAL SPINE WO CON, 07/08/2023, 14:45. [facility], CT, CT FACIAL BONES WO CON, 07/08/2023, 14:45. FINDINGS: Image quality: Diagnostic. CSF spaces: Basal cisterns are patent. No extra-axial fluid collections. The ventricles are symmetric in size and shape. Brain: No intracranial bleeds or masses. There is cerebral volume loss for age, with resultant ventricular and sulcal prominence. There are periventricular and deep white matter chronic small vessel ischemic changes. There is intracranial internal carotid artery atherosclerosis. Skull and face: Comminuted nasal bone fractures are seen. Nasal soft tissue swelling is seen. No displaced calvarial fracture is seen. Sinuses: Visualized sinuses and mastoids are clear. IMPRESSION: Nasal bone fractures are seen, with nasal soft tissue swelling. No acute intracranial hemorrhage is seen. No acute intracranial process is seen. Dictated by: Sudhir Rice M.D. on 07/08/2023 at 14:09 Approved by: Sudhir Rice M.D. on 07/08/2023 at 14:11
--- NOTE | 2023-07-08 14:39 | DI.CT.S_ITS ---
PROCEDURE: CT FACIAL BONES WO CON INDICATIONS: fall/facial injury bilat epistaxis TECHNIQUE: Noncontrast 2.5 mm thick axial images acquired from the mandible through the frontal sinuses, with coronal and sagittal reformatting. For radiation dose reduction, the following was used: automated exposure control, adjustment of mA and/or kV according to patient size. COMPARISON: [facility], CT, CT CERVICAL SPINE WO CON, 07/08/2023, 14:45. [facility], CT, CT HEAD/BRAIN WO CON, 07/08/2023, 14:45. FINDINGS: Image quality: Excellent. Bones and teeth: Comminuted nasal bone fractures are seen. No definite nasal septal fracture is seen. Orbital altamirano are intact. Sinus altamirano show no fracture or deformity. Visualized portions of the mandible demonstrate no fractures or subluxation. Zygomatic arches are intact. Pterygoid plates are intact. Visualized portions of the skull base and auditory canals are intact. Sinuses: Paranasal sinuses are aerated, without fluid levels, mucosal thickening, or mucoceles. Mastoid air cells are aerated. The ostiomeatal complexes are patent, yet they are constitutionally narrowed, with bilateral Matthew cells. Soft tissues: Blood can be seen within the nasal cavity. There is soft tissue swelling seen involving the nose. No radiopaque foreign bodies are seen. Vascular: Visualized vascular structures appear normal in the absence of contrast. Bony vascular foramina and canals are intact. IMPRESSION: Comminuted nasal bone fractures are seen, with soft tissue swelling. There is associated blood within the nasal cavity. Dictated by: Sudhir Rice M.D. on 07/08/2023 at 14:11 Approved by: Sudhir Rice M.D. on 07/08/2023 at 14:12
--- NOTE | 2023-07-08 15:34 | ED.FALL ---
HPI - Fall <Irma Beach PA-C - Last Filed: 07/09/23 19:42> General Chief Complaint: Fall Stated Complaint: fell on face, per pt might have broken nose Time Seen by Provider: 07/08/23 14:39 Source: patient and family Mode of arrival: Wheelchair History of Present Illness HPI Narrative: 68-year-old female presents with her with concern for possible fractured nose. Patient states that she lost her balance while walking and fell straight forward hitting her nose on a flat rock. She recently had shoulder surgery and has her shoulder in a sling on the right and so was unable to reach out to catch herself when she fell. She denies headache, vision change, does endorse some right great toe pain and discomfort but otherwise denies any other injuries. She states that she did have bleeding from the nose that was quite a bit but did stop on its own. They called ENT that she has seen previously but were advised that he was not available and came into the emergency department for further evaluation she denies any other complaints or concerns Related Data Home Medications Medication Instructions Recorded Confirmed aspirin 81 mg tablet,delayed 81 mg PO DAILY 03/16/18 10/28/22 release (Adult Low Dose Aspirin) cholecalciferol (vitamin D3) 125 5,000 unit PO DAILY 03/16/18 10/28/22 mcg (5,000 unit) capsule turmeric root extract 500 mg 1,000 mg PO DAILY 03/16/18 10/28/22 capsule rabeprazole 20 mg tablet,delayed 20 mg PO DAILY 04/19/19 10/28/22 release levothyroxine 88 mcg capsule 88 mcg PO DAILY 10/28/22 10/28/22 rosuvastatin 20 mg tablet 20 mg PO DAILY 10/28/22 10/28/22 Previous Rx's Medication Instructions Recorded estradiol 10 mcg vaginal tablet 10 mcg vaginal DAILY 2 weeks #30 10/28/22 (Yuvafem) tabs Allergies Allergy/AdvReac Type Severity Reaction Status Date / Time codeine [CODEINE] Allergy Severe Vomiting, Verified 10/28/22 13:42 diarrhea amoxicillin [AMOXICILLIN] Allergy Intermediate Nausea Verified 10/28/22 13:42 Review of Systems <Irma Beach PA-C - Last Filed: 07/09/23 19:42> Review of Systems Narrative: See HPI Patient History <Irma Beach PA-C - Last Filed: 07/09/23 19:42> Medical History Morbid obesity with body mass index (BMI) of 40.0 to 49.9 Obstructive sleep apnea syndrome Obesity (BMI 30-39.9) Insomnia Musculoskeletal problem (~2015) Fractures (~2015) Foot pain (~2015) Factor V Leiden (~2014) Surgical History Anesthesia History of shoulder surgery (~1973) History of artificial lens replacement Status post rhinoplasty (~1982) Status post hysterectomy (~1989) Status post cholecystectomy (~2015) Family History Father Heart disease Loud snoring Sleep apnea Obesity Depression Dementia Alcohol abuse Mother Heart disease Loud snoring Insomnia Hypertension Social History Smoking Status: Former smoker Smoking Status: Former smoker alcohol intake frequency: holidays/special occasions only Substance Use Type: does not use Exam <Irma Beach PA-C - Last Filed: 07/09/23 19:42> Narrative Exam Narrative: GENERAL: 68 year old patient appears stated age. Well-developed patient, in mild distress. HEAD: See ENT Atraumatic. Normocephalic. EYES: Pupils equal round and reactive. Extraocular motions intact. No scleral icterus. No injection or drainage. ENT: Nose without bleeding, purulent drainage. Throat without erythema, tonsillar hypertrophy or exudate. Airway patent. There is bruising and swelling at the bridge of the nose bilaterally No active bleeding from the nares or bleeding present in the posterior oropharynx on exam. Bilateral nares are patent. There is inflammation in the left nares, and some red blood present in the right nares without active bleeding. There is no septal hematoma present. Nose is tender, inflamed/swollen, more prominently swollen on the right, no crepitus noted, facial bones are otherwise stable without crepitus. NECK: Trachea midline. Non tender CARDIOVASCULAR: Regular rate and rhythm without murmurs, gallops, or rubs. RESPIRATORY: Clear to auscultation. Breath sounds equal bilaterally. No wheezes, rales, or rhonchi. GASTROINTESTINAL: Abdomen soft, non-tender, nondistended. EXTREMITIES: Right distal great toe is slightly swollen mildly erythematous consistent with recent trauma. No edema or joint tenderness. BACK: C-spine T-spine and L-spine are Nontender without deformity or crepitance or step-offs. No flank tenderness. NEURO: AOx3. SKIN: No rash or erythema of visible areas Initial Vital Signs Initial Vital Signs: Vital Signs Temperature 97.7 F 07/08/23 14:27 Pulse Rate 68 07/08/23 14:27 Respiratory Rate 18 07/08/23 14:27 Blood Pressure 140/72 07/08/23 14:27 Pulse Oximetry 98 07/08/23 14:27 Oxygen Delivery Method Room Air 07/08/23 14:27 <Eleanor Tejada MD - Last Filed: 07/10/23 18:25> Initial Vital Signs Initial Vital Signs: Vital Signs Temperature 97.7 F 07/08/23 14:27 Pulse Rate 68 07/08/23 14:27 Respiratory Rate 18 07/08/23 14:27 Blood Pressure 140/72 07/08/23 14:27 Pulse Oximetry 98 07/08/23 14:27 Oxygen Delivery Method Room Air 07/08/23 14:27 Course <Irma Beach PA-C - Last Filed: 07/09/23 19:42> Course Course Narrative: Consulted Dr. Contreras, [facility] who advises antibiotics are not indicated unless she has a number of lacerations internally or concern for dirt. He does recommend that she come in to be seen at his office in the next 10 days for reduction while nasal bones are still stable. Shared patient's name date of and phone number with him. [phone] Orders Ordered: ED Orders 07/08/23 14:39 CT cervical spine wo con Stat CT facial bones wo con Stat CT head/brain wo con Stat 07/08/23 15:36 XR toe RT min 2V Stat Vital Signs Vital signs: Vital Signs - 8 hr 07/08/23 14:27 07/08/23 16:25 Temperature 97.7 F Pulse Rate 68 67 Respiratory Rate 18 16 Blood Pressure 140/72 127/67 Pulse Oximetry 98 99 Oxygen Delivery Method Room Air Room Air <Eleanor Tejada MD - Last Filed: 07/10/23 18:25> Orders Ordered: ED Orders 07/08/23 14:39 CT cervical spine wo con Stat CT facial bones wo con Stat CT head/brain wo con Stat 07/08/23 15:36 XR toe RT min 2V Stat Vital Signs Vital signs: Vital Signs - 8 hr 07/08/23 14:27 07/08/23 16:25 Temperature 97.7 F Pulse Rate 68 67 Respiratory Rate 18 16 Blood Pressure 140/72 127/67 Pulse Oximetry 98 99 Oxygen Delivery Method Room Air Room Air MDM - Fall <Irma Beach PA-C - Last Filed: 07/09/23 19:42> Differential Diagnosis Differential diagnosis: Likely concussion without loss of consciousness and other (Nasal fracture) Imaging Data CT facial bones: My Impression: Agree with Radiology interpretation Radiologist's Impression: [address] [address] [address] Scan Report Signed Patient: Janet López MR#: [id number] : 1955 Acct:[id number] Age/Sex: 68 / F Date of Service: 07/08/23 Loc: ED Accession Number: [id number] Procedure: CT facial bones wo con Ordering Provider: Irma Beach P.A-C PROCEDURE: CT FACIAL BONES WO CON INDICATIONS: fall/facial injury bilat epistaxis TECHNIQUE: Noncontrast 2.5 mm thick axial images acquired from the mandible through the frontal sinuses, with coronal and sagittal reformatting. For radiation dose reduction, the following was used: automated exposure control, adjustment of mA and/or kV according to patient size. COMPARISON: [facility], CT, CT CERVICAL SPINE WO CON, 07/08/2023, 14:45. [facility], CT, CT HEAD/BRAIN WO CON, 07/08/2023, 14:45. FINDINGS: Image quality: Excellent. Bones and teeth: Comminuted nasal bone fractures are seen. No definite nasal septal fracture is seen. Orbital altamirano are intact. Sinus altamirano show no fracture or deformity. Visualized portions of the mandible demonstrate no fractures or subluxation. Zygomatic arches are intact. Pterygoid plates are intact. Visualized portions of the skull base and auditory canals are intact. Sinuses: Paranasal sinuses are aerated, without fluid levels, mucosal thickening, or mucoceles. Mastoid air cells are aerated. The ostiomeatal complexes are patent, yet they are constitutionally narrowed, with bilateral Matthew cells. Soft tissues: Blood can be seen within the nasal cavity. There is soft tissue swelling seen involving the nose. No radiopaque foreign bodies are seen. Vascular: Visualized vascular structures appear normal in the absence of contrast. Bony vascular foramina and canals are intact. IMPRESSION: Comminuted nasal bone fractures are seen, with soft tissue swelling. There is associated blood within the nasal cavity. Dictated by: Sudhir Rice M.D. on 07/08/2023 at 14:11 Approved by: Sudhir Rice M.D. on 07/08/2023 at 14:12 CT scan - head: My Impression: Agree with Radiology interpretation Radiologist's Impression: [place] [address] CT Scan Report Signed Patient: Janet López MR#: [id number] : 1955 Acct:[id number] Age/Sex: 68 / F Date of Service: 07/08/23 Loc: ED Accession Number: [id number] Procedure: CT head/brain wo con Ordering Provider: Irma Beach P.A-C PROCEDURE: CT HEAD/BRAIN WO CON INDICATIONS: fall from standing facial injury TECHNIQUE: Noncontrast 4.5 mm thick angled axial sections acquired from the foramen magnum to the vertex, with coronal and sagittal reformats. For radiation dose reduction, the following was used: automated exposure control, adjustment of mA and/or kV according to patient size. COMPARISON: [facility], CT, CT CERVICAL SPINE WO CON, 07/08/2023, 14:45. [facility], CT, CT FACIAL BONES WO CON, 07/08/2023, 14:45. FINDINGS: Image quality: Diagnostic. CSF spaces: Basal cisterns are patent. No extra-axial fluid collections. The ventricles are symmetric in size and shape. Brain: No intracranial bleeds or masses. There is cerebral volume loss for age, with resultant ventricular and sulcal prominence. There are periventricular and deep white matter chronic small vessel ischemic changes. There is intracranial internal carotid artery atherosclerosis. Skull and face: Comminuted nasal bone fractures are seen. Nasal soft tissue swelling is seen. No displaced calvarial fracture is seen. Sinuses: Visualized sinuses and mastoids are clear. IMPRESSION: Nasal bone fractures are seen, with nasal soft tissue swelling. No acute intracranial hemorrhage is seen. No acute intracranial process is seen. Dictated by: Sudhir Rice M.D. on 07/08/2023 at 14:09 Approved by: Sudhir Rice M.D. on 07/08/2023 at 14:11 CT cervical spine: My Impression: Agree with Radiology interpretation Radiologist's Impression: [address] [address] [address] Scan Report Signed Patient: Janet López MR#: [id number] : 1955 Acct:[id number] Age/Sex: 68 / F Date of Service: 07/08/23 Loc: ED Accession Number: [id number] Procedure: CT cervical spine wo con Ordering Provider: Irma Beach P.A-C PROCEDURE: CT CERVICAL SPINE WO CON INDICATIONS: fall w/ facial injury TECHNIQUE: Noncontrast 3 mm thick sections acquired from the skull base to the T4 level. Sagittal and coronal reformats were then constructed. For radiation dose reduction, the following was used: automated exposure control, adjustment of mA and/or kV according to patient size. COMPARISON: [facility], CR, XR CERVICAL SPINE 2V OR 3V, 06/20/2022, 13:08. [facility], CT, CT FACIAL BONES WO CON, 07/08/2023, 14:45. [facility], CT, CT HEAD/BRAIN WO CON, 07/08/2023, 14:45. FINDINGS: Image quality: Excellent. Bones: No fractures or dislocations. Visualized superior ribs are intact. Focal degenerative change is seen involving the C1-C2 interface anteriorly. There is at least moderate disc space narrowing seen at C4-C5, C5-C6, C6-C7, and C7-T1. Moderate generalized degenerative change can be seen involving the visualized superior cervical spine. Multiple levels of facet hypertrophy can be seen, with several levels of facet fusion. Soft tissues: Prevertebral soft tissues are normal in thickness. No paravertebral hematomas. No apical pneumothoraces. Thyroidectomy change can be seen, with left-sided neck soft tissue clips. IMPRESSION: No displaced fracture or traumatic subluxation. Multiple levels of significant underlying degenerative change can be seen, which are overall worst involving the lower cervical spine. Dictated by: Sudhir Rice M.D. on 07/08/2023 at 14:13 Approved by: Sudhir Rice M.D. on 07/08/2023 at 14:15 Extremity x-ray #1: My Impression: Agree with Radiology interpretation Radiologist's Impression: [address] [address] XRay Report Signed Patient: Janet López MR#: [id number] : 1955 Acct:[id number] Age/Sex: 68 / F Date of Service: 07/08/23 Loc: ED Accession Number: [id number] Procedure: XR toe RT min 2V Ordering Provider: Irma Beach P.A-C PROCEDURE: XR TOE RT MIN 2V INDICATIONS: R toe pain/swelling/fall TECHNIQUE: 3 views of the great toe(s) acquired. COMPARISON: None. FINDINGS: Bones: Tip of distal tuft fracture of distal phalanx. No suspicious bony lesions. Soft tissues: No suspicious soft tissue densities. IMPRESSION: Tip of distal tuft fracture of distal phalanx of great toe. Dictated by: Saad Vallejo M.D. on 07/08/2023 at 17:24 Approved by: Saad Vallejo M.D. on 07/08/2023 at 17:25 [facility] Narrative Medical decision making narrative: This is a 68-year-old female on aspirin, no blood thinners presenting today with concern for facial injury after she fell forward hitting her face without loss of consciousness and nasal swelling and epistaxis. Epistaxis resolved by arrival to the emergency department. CT head neck non-con as well as facial bones ordered for further evaluation. These returned unremarkable except for the facial bone x-ray which does show a nasal bone fracture. Patient's nose is without gross deformity there is swelling present and difficult to fully assess however no crepitus noted. Epistaxis resolved independently prior to arrival to emergency department. Patient's exam is otherwise unremarkable except for right toe pain and tenderness with mild swelling on x-ray there is noted to be a tuft fracture. Offer patient an orthopedic shoe for the right foot however she declined this. Consulted ENT regarding patient's facial injuries and they would like to see her for follow-up to reset the nose if needed within the next 7 days. Patient information shared with them. Patient and her who is also an MD provided with information regarding ENT follow-up, return precautions provided, follow-up plan discussed, all questions answered. Discharge Plan Departure Patient Disposition: Home Clinical Impression: Fracture of nasal bone Qualifiers: Encounter type: initial encounter Fracture type: closed Qualified Code(s): S02.2XXA - Fracture of nasal bones, initial encounter for closed fracture Fall Qualifiers: Encounter type: initial encounter Qualified Code(s): W19.XXXA - Unspecified fall, initial encounter Closed fracture of toe Qualifiers: Encounter type: initial encounter Toe: great toe Phalanx: distal Fracture alignment: nondisplaced Laterality: right Qualified Code(s): S92.424A - Nondisplaced fracture of distal phalanx of right great toe, initial encounter for closed fracture Activity Restrictions/Additional Instructions: *You have been diagnosed with [nasal bone fracture] *What to do: *Please continue to take your regular medications as directed. [ ] New medication prescriptions sent to your pharmacy: [ ] [ ] New medication written as a paper prescription [X ] No new medications given *Please follow up with your primary care provider in 2-3 days, call for an appointment. Let them know you were seen in the Emergency Department and that we ask that you be seen in follow up. We will electronically transmit a record of today's note if your PCP is in our system. After your fall today we did a CT scan of your head, cervical spine and facial bones. Your neck did show some degenerative changes of the spine but no new injury, there is no acute intracranial bleed--your head CT looked okay today. Your facial bones do show a nasal fracture. Thankfully the bleeding from this was controlled, I spoke with our on-call ENT Dr. Contreras at [facility], and shared your information with him; he did not recommend antibiotics; but does want you seen in the next 10 days. I do recommend you call the office number below to get in to be seen by him or another ENT provider at his office he recommended you be seen within the next 10 days so that they can perform a reduction to realign your nose if needed. I recommend icing on and off for the next 24 hours to help reduce swelling and inflammation. You may possibly have recurrence of bleeding, if this is minor I recommend direct pressure/gentle pressure and this usually will stop within 5 minutes. If it is persistent you could try gently doing a few sprays of Flonase however if it does persist you may need to come back to the emergency department for further care. I would encourage you to consider taking Tylenol for pain. You also had an x-ray of your right toe which was hurting you and a little swollen after the fall. You did have a tuft fracture which is just the very end of the bone at the end of your toe of your great toe on the right foot. This is not something that require surgery, but we did place you in an orthopedic shoe today for support and protection. You may want to avoid wearing tight shoes or shoes that put pressure on your toe for the next 3-6 weeks. It typically it has not required to see Orthopedics for this however it is definitely reasonable to do so particularly if you are having continued pain or discomfort in the area. *If you do not have a primary care provider please contact the [facility] Resource line at [phone]. They will ask some questions about your medical history and help get you set up with a doctor in the community. *Return to Emergency Department if you should have any new, worsening or concerning symptoms, such as [fever greater than 101 F, shaking chills, worsening pain, persistent vomiting or other bothersome symptoms] Prescriptions: No Action levothyroxine 88 mcg capsule 88 mcg PO DAILY rosuvastatin 20 mg tablet 20 mg PO DAILY estradiol [Yuvafem] 10 mcg tablet 10 mcg vaginal DAILY 14 Days Qty: 30 3RF Rx Instructions: Place 1 tab in the vagina daily for 2 wks and then twice a week aspirin [Adult Low Dose Aspirin] 81 mg tablet,delayed release (DR/EC) 81 mg PO DAILY cholecalciferol (vitamin D3) 5,000 unit capsule 5,000 unit PO DAILY turmeric root extract 500 mg capsule 1,000 mg PO DAILY rabeprazole 20 mg tablet,delayed release (DR/EC) 20 mg PO DAILY Referrals: Joseph Coronado MD [Primary Care Provider] - Rocky Contreras MD [Physician] - (Fractured nasal bone; no septal hematoma; nares patent; needs seen for reduction; consulted from ED 07/07) Stand Alone Forms: Patient Portal/API ED Sign-out <Eleanor Tejada MD - Last Filed: 07/10/23 18:25> Cosign ED Attending Cosignature Attestation: I DID NOT SEE THIS PATIENT. I WAS AVAILABLE ALL TIMES FOR CONSULTATION.
[2023-07-08 16:25] VITALS: BP 127/67; PULSE 67; RESP 16; O2SAT 99
[2023-07-08 17:46] VITALS: BP 153/72; PULSE 65; RESP 18; O2SAT 100
== END 2023-07-08 17:49 | disposition home or self-care (01) ==
PROVIDERS: Emergency Provider Student in an Organized Health Care Education/Training Program; PCP Family Medicine
DX: S02.2XXA Fracture of nasal bones, initial encounter for closed fracture (principal); S92.424A Nondisplaced fracture of distal phalanx of right great toe, initial encounter for closed fracture; W18.30XA Fall on same level, unspecified, initial encounter
CPT/HCPCS: 70450; 70486; 72125; 73660; 99281; 99284

== ENCOUNTER → 2023-07-30 17:01 | Outpatient (CLI) | payer MEDICARE, SELFPAY ==
--- NOTE | 2023-07-30 | DI.RAD.S_ITS ---
PROCEDURE: XR SHOULDER RT MIN 2V INDICATIONS: shoulder pain TECHNIQUE: 2 views of the shoulder were acquired. COMPARISON: [facility], CR, XR SHOULDER RT MIN 2V, 05/31/2018, 14:36. FINDINGS: Bones: Right shoulder arthroplasty with reverse shoulder prosthesis in anatomic alignment. No suspicious bony lesions. Visualized ribs appear intact. Soft tissues: No suspicious soft tissue calcifications. IMPRESSION: Right shoulder arthroplasty with expected appearance. Dictated by: Avel Brown M.D. on 07/31/2023 at 14:47 Approved by: Avel Brown M.D. on 07/31/2023 at 14:54
--- NOTE | 2023-07-30 | DI.RAD.S_ITS ---
PROCEDURE: XR ELBOW RT MIN 3V INDICATIONS: PAIN IN RT ELBOW TECHNIQUE: 3 views of the elbow were acquired. COMPARISON: None. FINDINGS: Bones: There is a lucency in the lateral humeral epicondyle. No fractures or dislocations. No suspicious bony lesions. Mild degenerative joint disease. Soft tissues: No elbow joint effusion. No suspicious soft tissue calcifications. IMPRESSION: 1. Lucency in the lateral humeral epicondyle. Comparison to prior examinations would be helpful, if available. Consider CT or MRI for further evaluation. 2. Mild osteoarthritis. Dictated by: Avel Brown M.D. on 07/31/2023 at 14:41 Approved by: Avel Brown M.D. on 07/31/2023 at 14:43
--- NOTE | 2023-07-30 17:06 | DI.RAD.S_ITS ---
PROCEDURE: XR KNEE LT 3V INDICATIONS: lt knee pain TECHNIQUE: 3 views of the knee were acquired. COMPARISON: None. FINDINGS: Bones: No fractures or dislocations. No suspicious bony lesions. There is moderate to severe tricompartmental knee joint degeneration. Soft tissues: Trace joint effusion. No suspicious soft tissue calcifications. IMPRESSION: 1. Moderate to severe degenerative joint disease. Dictated by: Avel Brown M.D. on 07/31/2023 at 11:19 Approved by: Avel Brown M.D. on 07/31/2023 at 11:42
== END ==
PROVIDERS: PCP Family Medicine; Referring Provider Orthopaedic Surgery; Visit Provider Orthopaedic Surgery
DX: M17.12 Unilateral primary osteoarthritis, left knee (principal); M19.021 Primary osteoarthritis, right elbow; M25.562 Pain in left knee; M25.521 Pain in right elbow; M25.462 Effusion, left knee; Z96.611 Presence of right artificial shoulder joint
CPT/HCPCS: 73030; 73080; 73562

== ENCOUNTER → 2023-08-14 13:00 | Outpatient (CLI) | payer MEDICARE, SELFPAY ==
--- NOTE | 2023-08-14 13:02 | DI.MRI.S_ITS ---
PROCEDURE: MR KNEE LT WO CON INDICATIONS: ROUTINE SCREENING/Pain in left knee TECHNIQUE: Noncontrast sagittal PD fast spin echo and T2 fast spin echo with fat saturation, sagittal 3-D FLASH with fat saturation; coronal T1 spin echo and PD fast spin echo with fat saturation, and axial PD fast spin echo with fat saturation through the knee. COMPARISON: [facility], MR, MR KNEE RT WO CON, 06/07/2023, 15:37. FINDINGS: Image quality: Excellent. Menisci: Peripheral displacement of medial meniscus is seen bowing medial collateral ligament. There is suggestion of bucket-handle tear involving medial meniscus with centrally displaced medial meniscal fragment anterior to the PCL forming double PCL sign. Peripheral displacement of lateral meniscus is also seen with complex oblique tear involving anterior horn, body and posterior horn of lateral meniscus extending to both superior and inferior articulating surfaces. Cruciate ligaments: The anterior cruciate ligament is thickened with intrasubstance T2 hyperintense signal. The posterior cruciate ligament is intact. Medial structures: The medial collateral ligament appears mildly thickened with surrounding soft tissue edema. Visualized portions of the pes anserinus tendons appear normal. No abnormal bursal fluid. Lateral structures: The lateral collateral ligament is thickened with intrasubstance T2 hyperintense signal. The long and short heads of the biceps femoris tendon appear intact. The popliteus tendon appears thickened extending to musculotendinous junction. Edema involving soft tissue between iliotibial band and lateral femoral condyle is seen. Anterior structures: The quadriceps and patellar tendons appear intact. Patellar alignment is normal. No femoral trochlear dysplasia or ventral trochlear prominence. No edema in the infrapatellar fat pad. Bones and cartilage: Moderate to severe tricompartmental osteoarthritis and chondromalacia is seen more notably in patellofemoral compartment and medial femoral tibial compartment. No acute fracture or dislocation. Joint space: There is small knee joint fluid. No Scott's cyst. Normal appearing synovial plicae are incidentally noted. IMPRESSION: 1. Suggestion of bucket-handle type tear involving medial meniscus with centrally displaced medial meniscal fragment anterior to PCL. Complex tear involving entire lateral meniscus extending to both superior and inferior articulating surfaces. 2. Degenerative changes and low-grade partial-thickness tear involving ACL. No full-thickness ACL rupture. The PCL is intact. 3. Low-grade MCL sprain. Low to moderate grade LCL sprain. 4. Popliteus tendinosis. Soft tissue edema between iliotibial band and lateral femoral condyle concerning for iliotibial band syndrome. 5. Moderate to severe tricompartmental osteoarthritis and chondromalacia more notably in medial femoral tibial compartment and patellofemoral compartment. No acute fracture or dislocation. Small joint effusion, no loose bodies. Dictated by: Prince Weaver M.D. on 08/14/2023 at 16:36 Approved by: Prince Weaver M.D. on 08/14/2023 at 16:42
--- NOTE | 2023-08-14 13:02 | DI.MG.S_ITS ---
BILATERAL DIGITAL SCREENING MAMMOGRAM 3D/2D WITH CAD: 08/14/2023 CLINICAL: Routine screening. Family history of breast cancer. Comparison is made to exams dated: 07/18/2022 mammogram, 07/15/2021 mammogram, and 07/03/2020 mammogram - [facility]. Both breasts are almost entirely fatty (category a/<25% glandular tissue). Current study was also evaluated with a Computer Aided Detection (CAD) system. No significant masses, calcifications, or other findings are seen in either breast. There has been no significant interval change. IMPRESSION: NEGATIVE There is no mammographic evidence of malignancy. A 1 year screening mammogram is recommended. Based on the Tyrer Cuzick model (a risk assessment model) the patient's lifetime risk is 4.4% and her 10 year risk is 2.8%. According to the ACR, ACS, and NCCN guidelines, an annual breast MRI exam along with mammogram is recommended if the patient's lifetime risk is 20% or greater. This exam was interpreted at Station ID: [id number]. NOTE: For mammograms, a report in lay terms will be sent to the patient. Approximately 15% of breast malignancies will not be visualized mammographically. In the management of a palpable breast mass, a negative mammogram must not discourage biopsy of a clinically suspicious lesion. Electronically Signed By: Alessandro huntley/horacio:08/14/2023 14:24:22 letter sent: Normal Exam ACR BI-RADS Category 1: Negative [id number]
== END ==
PROVIDERS: PCP Family Medicine; Referring Provider Family Medicine; Visit Provider Family Medicine
DX: Z12.31 Encounter for screening mammogram for malignant neoplasm of breast (principal); Z80.3 Family history of malignant neoplasm of breast; R92.313 Mammographic fatty tissue density, bilateral breasts; S83.232A Complex tear of medial meniscus, current injury, left knee, initial encounter; S83.512A Sprain of anterior cruciate ligament of left knee, initial encounter; S83.412A Sprain of medial collateral ligament of left knee, initial encounter; S83.422A Sprain of lateral collateral ligament of left knee, initial encounter; M17.12 Unilateral primary osteoarthritis, left knee; M22.42 Chondromalacia patellae, left knee; M25.462 Effusion, left knee; M25.562 Pain in left knee
CPT/HCPCS: 73721; 77063; 77067

== ENCOUNTER → 2024-04-21 13:51 | Outpatient (CLI) | payer MEDICARE, SELFPAY ==
--- NOTE | 2024-04-21 13:52 | DI.RAD.S_ITS ---
PROCEDURE: XR DEXA AXIAL SKELETON INDICATIONS: osteoporosis screening COMPARISON: None. FINDINGS: Lumbar Spine: Bone mineral density 0.921 g/cm2, T score -1.1, Z-score 1.0. Left Femoral Neck: Bone mineral density is 0.656 g/cm2, T score -1.7. Left Hip: Bone mineral density is 0.801 g/cm2, T score -1.2, Z-score 0.4.. Fracture Risk Calculation (when applicable): 10-year fracture risk of a major osteoporotic fracture 8.9 percent and of a hip fracture 1.4 percent. (T score greater or equal to -1.0 to: NORMAL) (T score from -1.1 to -2.4: OSTEOPENIA) (T score less than or equal to -2.5: OSTEOPOROSIS) IMPRESSION: Osteopenia lumbar spine and left hip. Follow-up guidelines as follows: Osteoporosis: Consider a repeat DEXA and Vertebral Fracture Assessment (VFA) exam in 2 years or sooner if medically necessary, to reassess this patient's status. Osteopenia: Consider a repeat DEXA in 2-3 years to reassess this patient's status, or if there is a new clinical indication. Normal: Consider a repeat DEXA in 5 years or sooner, or if there is a new clinical indication. All treatment decisions require clinical judgment and consideration of individual patient factors, including patient preferences, comorbidities, previous drug use, risk factors not captured in the FRAX model (e.g., frailty, falls, vitamin D deficiency, increased bone turnover, interval significant decline in bone density ) and possible under- or over-estimation of fracture risk by FRAX. In addition, the NOF Guide recommends that FDA-approved medical therapies be considered in postmenopausal women and men age >= 50 years with a: * Hip or vertebral (clinical or morphometric) fracture * T-score of <=-2.5 at the spine or hip * Ten-year fracture probability by FRAX of >= 3% for hip fracture or >=20% for major osteoporotic fracture. Dictated by: Emerson Feng M.D. on 04/22/2024 at 8:25 Approved by: Emerson Feng M.D. on 04/22/2024 at 8:31
== END ==
LOC: RAD 13:51
PROVIDERS: PCP Family Medicine; Referring Provider Family Medicine; Visit Provider Family Medicine
DX: M85.89 Other specified disorders of bone density and structure, multiple sites (principal); R29.890 Loss of height; Z78.0 Asymptomatic menopausal state
CPT/HCPCS: 77080

== ENCOUNTER → 2024-08-11 11:13 | Outpatient (CLI) | payer MEDICARE, SELFPAY ==
--- NOTE | 2024-08-11 11:18 | DI.CT.S_ITS ---
PROCEDURE: CT ABDOMEN PELVIS W CON INDICATIONS: GENERALIZED ABD PAIN TECHNIQUE: After the administration of intravenous contrast, axial sections acquired from the lung bases to the pubic symphysis. Coronal and sagittal reformats were performed. For radiation dose reduction, the following was used: automated exposure control, adjustment of mA and/or kV according to patient size. COMPARISON: None. FINDINGS: Image quality: Diagnostic. Lower Chest: No significant findings. ABDOMEN: Liver: No solid mass. Gallbladder: Status post cholecystectomy Biliary ducts: No biliary dilation. Pancreas: No ductal dilation. Spleen: Size is within normal limits. Adrenal Glands: There is a 2.35 cm left adrenal nodule, attenuation values of 40 Hounsfield units.4 Kidneys and Ureters: No hydronephrosis. No solid mass. No complex renal cystic lesion which requires follow up. Stomach and Bowel: Normal colonic caliber, without significant wall thickening. There is diverticulosis in the left colon. Mild inflammatory changes adjacent to the mid sigmoid colon on the left. No fluid collections seen Peritoneum: No abnormal intraperitoneal fluid. No free air. Ventral Wall: No significant ventral hernia. Abdominal Nodes: No retroperitoneal or mesenteric adenopathy by size criteria. Vessels: Aorta and inferior vena cava are normal in size. PELVIS: Pelvic Organs: Unremarkable. Bladder: No bladder wall thickening, accounting for underdistention. Pelvic Nodes: No enlarged lymph nodes. Miscellaneous: No inguinal hernias are seen. Bones: No aggressive osseous abnormality. IMPRESSION: 1. Findings most suggestive of mild acute uncomplicated sigmoid diverticulitis. 2. Indeterminate left adrenal nodule, can be further assessed with unenhanced CT. Dictated by: Donnell Armstrong M.D. on 08/11/2024 at 16:24 Approved by: Donnell Armstrong M.D. on 08/11/2024 at 16:28
== END ==
LOC: CT 11:16
PROVIDERS: PCP Family Medicine; Referring Provider Family Medicine; Visit Provider Family Medicine
DX: K57.30 Diverticulosis of large intestine without perforation or abscess without bleeding (principal); D44.12 Neoplasm of uncertain behavior of left adrenal gland; R10.84 Generalized abdominal pain; Z90.49 Acquired absence of other specified parts of digestive tract
CPT/HCPCS: 74177; Q9967

== ENCOUNTER → 2024-08-24 18:54 | Outpatient (CLI) | payer MEDICARE, SELFPAY ==
--- NOTE | 2024-08-24 18:56 | DI.MRI.S_ITS ---
PROCEDURE: MR ABDOMEN WO CON INDICATIONS: abnormal CT TECHNIQUE: Coronal HASTE through the abdomen, axial 2-D FLASH in- and [id number], and breath-hold T2 FSE with fat saturation through the biliary system and pancreas. Oblique coronal and axial thin-slice HASTE, radial thick-slab HASTE centered on the extrahepatic bile ducts. Intravenous secretin: Not requested. COMPARISON: [facility], CT, CT ABDOMEN PELVIS W CON, 08/11/2024, 12:41. FINDINGS: Image quality: Diagnostic Lower chest: Unremarkable Liver: Unremarkable Gallbladder and biliary system: Absent, prominent CBD, likely related to postsurgical state Pancreas: No ductal dilation Spleen: Small cyst in the mid aspect Adrenals: 1.7 cm and 1.9 cm left adrenal adenomas, with lipid rich contents on chemical shift imaging. Kidneys: No discrete mass lesion. No hydronephrosis. Cysts are present. Vessels and lymph nodes: No enlarged lymph nodes by size criteria on this noncontrast limited study Bowel and peritoneum: Colonic diverticula. No drainable abscess or ascites. Body wall: Unremarkable Bones: Degenerative changes. IMPRESSION: Lipid rich left adrenal adenomas. Correlate with biochemical testing to determine functional status. Other findings above Dictated by: Alessandro Alcantara M.D. on 08/25/2024 at 12:02 Approved by: Alessandro Alcantara M.D. on 08/25/2024 at 12:05
== END ==
PROVIDERS: PCP Family Medicine; Referring Provider Family Medicine; Visit Provider Family Medicine
DX: E27.9 Disorder of adrenal gland, unspecified (principal); D35.02 Benign neoplasm of left adrenal gland; D73.4 Cyst of spleen
CPT/HCPCS: 74181

== ENCOUNTER → 2024-09-05 09:43 | Outpatient (CLI) | payer MEDICARE, SELFPAY | PROVIDERS: PCP Family Medicine; Referring Provider Family Medicine; Visit Provider Family Medicine | DX: E27.8 Other specified disorders of adrenal gland (principal) | CPT/HCPCS: 82384 ==

== ENCOUNTER → 2024-10-25 14:48 | Outpatient (CLI) | payer MEDICARE, SELFPAY ==
--- NOTE | 2024-10-25 14:51 | DI.RAD.S_ITS ---
PROCEDURE: XR KNEE LT 3V INDICATIONS: Chronic pain of left knee TECHNIQUE: 3 views of the knee were acquired. COMPARISON: [facility], , XR KNEE LT 3V, 07/30/2023, 17:05. FINDINGS: Bones: No acute fracture or dislocation. Redemonstration of severe tricompartmental osteoarthrosis with significant joint space loss of the lateral patellofemoral compartment as well as mild-moderate joint space loss of the medial and lateral femorotibial compartments. Prominent marginal osteophytes. Soft tissues: Minimal joint effusion. No suspicious soft tissue calcifications. IMPRESSION: No acute bony abnormality or significant effusion. Severe tricompartmental osteoarthrosis of the left knee. Dictated by: Jimmy Villeda M.D. on 10/25/2024 at 17:55 Approved by: Jimmy Villeda M.D. on 10/25/2024 at 17:56
== END ==
PROVIDERS: PCP Family Medicine; Referring Provider Family Medicine; Visit Provider Family Medicine
DX: M17.12 Unilateral primary osteoarthritis, left knee (principal); M25.562 Pain in left knee; G89.29 Other chronic pain
CPT/HCPCS: 73562

== ENCOUNTER → 2024-12-16 09:35 | Outpatient (CLI) | payer MEDICARE, SELFPAY ==
--- NOTE | 2024-12-19 17:47 | DI.NM.S_ITS ---
DATE OF SERVICE: 12/16/2024 NUCLEAR CARDIOLOGY MYOCARDIAL PERFUSION STUDY PROCEDURE: Exercise treadmill stress and rest myocardial perfusion imaging study with gating to assess ejection fraction and regional wall motion. ORDERING PROVIDER: Joseph Herrera MD. INDICATIONS: The patient is a 69-year-old female with atypical chest discomfort. CARDIAC STRESS: The patient was able to exercise for 6 minutes on a standard Arnulfo protocol suggesting good exercise capacity with an AMPARO of -5%, achieving 6.1 METS. She had a normal heart rate and blood pressure response to exercise, achieving a maximum heart rate of 149 bpm (100% of her predicted maximum) and had moderate exertional dyspnea but no chest discomfort. Her resting ECG shows sinus rhythm with normal ST segments. With stress, there is minor ST-segment shifts but considerable motion artifact limits the interpretation but the immediate recovery tracings show no concerning ST-segment depression. There were rare isolated PVCs, but no complex ectopy. At 3 minutes of exercise at a heart rate of 130 bpm, 25.0 millicuries of technetium-99m Myoview was injected and she was imaged 15 minutes later using a gated SPECT acquisition protocol. Three days later while at rest, she was injected with 25.0 millicuries of technetium-99m Myoview and imaged 15 minutes later, again using a gated SPECT acquisition protocol. FINDINGS: 1. Raw data. There is moderate image quality with evidence for attenuation artifact, particularly on the post-stress images. The lung/heart ratio is at the upper limits of normal at 0.40 with a normal TID ratio of 0.91. 2. Post stress ejection fraction is 73% without any focal wall motion abnormality and specifically the distal anteroapex has normal contractility. The resting ejection fraction is 69% with a borderline increased end diastolic left ventricular volume of 125 mL. 3. Myocardial perfusion imaging: Post-stress supine images are of moderate quality but suggest a small defect in the distal anterior wall and apex in a pattern consistent with breast attenuation, supported by its complete resolution on the prone images which reveal a normal, homogeneous perfusion pattern without any perfusion defects. The resting images show a similar perfusion pattern to that of the post-stress images, except slight improvement in the distal anterolateral segment of the apex.. IMPRESSION: 1. Probable normal myocardial perfusion study. 2. Small, predominantly fixed, but slightly reversible perfusion defect in the distal anterolateral wall and apex in a pattern consistent with breast attenuation artifact, supported by its complete resolution on the prone images which had no perfusion defects. While a small volume of previous infarction with slight shayan-infarct ischemia cannot be entirely excluded, the normal prone images and absence of any wall motion abnormality in this distribution would mitigate against this. Even if present, this study remains a low risk exam. 3. Normal left ventricular systolic function with borderline increased left ventricular volumes and no regional wall motion abnormality. The lung/heart ratio is borderline elevated at 0.40, which could be a indication of pulmonary congestion but is nonspecific and requires clinical correlation. 4. Good exercise capacity without angina or significant ECG changes of ischemia. Rare isolated PACs and PVCs were noted but no complex ectopy. Janet López - RS/severo/FACULTY SUPPORT COORDINATOR doc#: [id number]/job#: [id number] dd: 12/19/2024 16:44:00 dt: 12/19/2024 17:30:00 DICTATING MD/COPIES TO: Joseph Álvarez MD; Joseph Herrera MD COPIES MNE: ALLA;
== END ==
PROVIDERS: PCP Family Medicine; Referring Provider Family Medicine; Visit Provider Family Medicine
DX: R07.89 Other chest pain (principal)
CPT/HCPCS: 78452; 93017; A9502

== ENCOUNTER → 2024-12-27 12:17 | Outpatient (CLI) | payer MEDICARE, SELFPAY ==
--- NOTE | 2024-12-27 12:26 | DI.RAD.S_ITS ---
PROCEDURE: XR CHEST 2V INDICATIONS: CHEST PAIN TECHNIQUE: 2 views of the chest were acquired. COMPARISON: [facility], CR, XR CHEST 2V, 08/09/2021, 10:33. FINDINGS: Surgical changes and devices: Right shoulder arthroplasty is partially visualized. Lungs and pleura: Lungs are clear. No pleural effusions or pneumothorax. Mediastinum: Mediastinal contours are normal. Heart size is normal. Bones and chest wall: No suspicious bony abnormalities. Soft tissues appear unremarkable. IMPRESSION: No acute cardiopulmonary abnormality is seen. Dictated by: Ayo Hoover M.D. on 12/27/2024 at 13:40 Approved by: Ayo Hoover M.D. on 12/27/2024 at 13:41
== END ==
PROVIDERS: PCP Family Medicine; Referring Provider Family Medicine; Visit Provider Family Medicine
DX: R07.9 Chest pain, unspecified (principal); Z96.611 Presence of right artificial shoulder joint
CPT/HCPCS: 71046

== ENCOUNTER 2025-01-31 21:29 | Emergency (ER) | payer MEDICARE, SELFPAY ==
[2025-01-31 21:38] VITALS: BP 168/79; PULSE 56; RESP 18; TEMP 36.4; O2SAT 96; BMI 44.2
--- NOTE | 2025-01-31 21:44 | DI.RAD.S_ITS ---
PROCEDURE: XR CHEST 1V
--- NOTE | 2025-01-31 21:51 | EKG_ITS ---
[facility]
--- NOTE | 2025-01-31 21:57 | DI.CT.S_ITS ---
PROCEDURE: CT ANGIO CHEST PE PROTOCOL
--- NOTE | 2025-01-31 21:59 | DI.CT.S_ITS ---
PROCEDURE: CT ABDOMEN PELVIS W CON
[2025-01-31 22:24] LABS: Add Manual Diff / Slide Review NO; Hematocrit 38.0 % (36-46); Hemoglobin 12.9 g/dL (12.0-16.0); Lymphocytes Absolute Auto 2000 /uL (1100-4500); Mean Corpuscular HGB Conc 34.0 % (30-36); Mean Corpuscular Hemoglobin 30.2 PG (26-34); Mean Corpuscular Volume 88.7 fL (80-100); Platelet Count 299 X10^3/uL (150-400)
[2025-01-31 22:32] LABS: INR 1.0 (0.9-1.3); Prothrombin Time 11.8 SECONDS (9.4-12.5)
[2025-01-31 22:35] LABS: PTT Partial Thromboplastin Tim 28 SECONDS (25.1-36.5)
[2025-01-31 22:36] LABS: Alanine Aminotransferase 21 IU/L (<35); Albumin 4.4 g/dL (3.5-5.0); Albumin Globulin Ratio 1.5 (1.0-2.8); Alkaline Phosphatase 82 U/L (38-126); Blood Urea Nitrogen 23 mg/dL (7-17); Calcium 9.2 mg/dL (8.4-10.2); Carbon Dioxide 22 mmol/L (22-32); Chloride 105 mmol/L (98-107); Creatine Kinase 123 U/L (30-135); Estimated Glomerular Filt Rate > 60 mL/min (>60); Globulin 2.9 g/dL (1.7-4.1); Glucose 101 mg/dL (70-99); HEMOLYSIS < 15 (0-50); Lipase 153 U/L (23-300); Magnesium 2.0 mg/dL (1.6-2.3); Potassium 4.0 mmol/L (3.4-5.1); Sodium 136 mmol/L (137-145); Total Protein 7.3 g/dL (6.3-8.2)
[2025-01-31 22:38] VITALS: PULSE 61; RESP 20; O2SAT 97
[2025-01-31 22:47] LABS: NT-proBNP (BNP-Adult 18+) 74 pg/mL (<125); Troponin I < 0.012 ng/mL (0.01-0.034)
[2025-01-31 23:11] VITALS: PULSE 65; O2SAT 97
--- NOTE | 2025-01-31 23:13 | ED_ITS ---
HPI - SOB/Dyspnea
--- NOTE | 2025-01-31 23:13 | ED.SOB ---
HPI - SOB/Dyspnea General Chief Complaint: Shortness of Breath/Dyspnea Stated Complaint: SOB, Fatigue Time Seen by Provider: 01/31/25 21:31 Source: patient Mode of arrival: Ambulatory History of Present Illness HPI Narrative: 69-year-old female with history of obstructive sleep apnea using CPAP, problems with insomnia which she has ongoing evaluation at sleep lab [facility], followed by local floor care specialist Dr. Carnes, has recent atypical chest pain, prior nuclear medicine stress testing, no coronary vessel interventions, awaiting cardiac CT angiography later this month ordered by her floor care specialist, history of GERD with recent increase of Protonix antacid from once daily to twice daily 2 weeks ago, also now day 2 of oral ciprofloxacin/Flagyl antibiotics prescribed by her physician empirically for possible early diverticulitis which seems to be improving. This afternoon patient had shortness of breath with walking around her house, no significant exertion recalled, no associated chest pain or palpitations or syncope or presyncopal symptoms. Symptoms seemed to be better a specific treatment. History of Leiden factor V mutation apparently discovered when her brother had unprovoked DVTs and factor V Leiden mutation was discovered and family members including herself were tested. She is on aspirin but not other blood thinner medications. No history of blood clots to legs or lungs recalled, she has had a before without blood clotting problems. Denies history of lung problems, use of inhalers, recent cough, fevers or chills. She denies frequency of urination or painful urination. No injury, trauma, new activities. Related Data Home Medications ?Medication ?Instructions ?Recorded ?Confirmed aspirin 81 mg tablet,delayed 81 mg PO DAILY 03/16/18 10/28/22 release (Adult Low Dose Aspirin) cholecalciferol (vitamin D3) 125 5,000 unit PO DAILY 03/16/18 10/28/22 mcg (5,000 unit) capsule turmeric root extract 500 mg 1,000 mg PO DAILY 03/16/18 10/28/22 capsule rabeprazole 20 mg tablet,delayed 20 mg PO DAILY 04/19/19 10/28/22 release levothyroxine 88 mcg capsule 88 mcg PO DAILY 10/28/22 10/28/22 rosuvastatin 20 mg tablet 20 mg PO DAILY 10/28/22 10/28/22 Previous Rx's ?Medication ?Instructions ?Recorded estradiol 10 mcg vaginal tablet 10 mcg vaginal DAILY 2 weeks #30 10/28/22 (Yuvafem) tabs Allergies Allergy/AdvReac Type Severity Reaction Status Date / Time codeine (CODEINE) AdvReac Severe Vomiting, Verified 01/31/25 21:38 diarrhea amoxicillin (AMOXICILLIN) AdvReac Intermediate Nausea Verified 01/31/25 21:38 Patient History Medical History Morbid obesity with body mass index (BMI) of 40.0 to 49.9 Obstructive sleep apnea syndrome Obesity (BMI 30-39.9) Insomnia Musculoskeletal problem (~2015) Fractures (~2015) Foot pain (~2015) Factor V Leiden (~2014) Surgical History Anesthesia History of shoulder surgery (~1973) History of artificial lens replacement Status post rhinoplasty (~1982) Status post hysterectomy (~1989) Status post cholecystectomy (~2015) Family History Father Heart disease Loud snoring Sleep apnea Obesity Depression Dementia Alcohol abuse Mother Heart disease Loud snoring Insomnia Hypertension Social History Smoking Status: Former smoker Smoking Status: Former smoker alcohol intake frequency: holidays/special occasions only Exam Narrative Exam Narrative: GENERAL: Well-developed patient, in mild distress. HEAD: Atraumatic. Normocephalic. EYES: Pupils equal round and reactive. Extraocular motions intact. No scleral icterus. No injection or drainage. ENT: Nose without bleeding, purulent drainage. Throat without erythema, tonsillar hypertrophy or exudate. Airway patent. NECK: Trachea midline. Non tender CARDIOVASCULAR: Regular rate and rhythm without murmurs, gallops, or rubs. RESPIRATORY: Clear to auscultation. Breath sounds equal bilaterally. No wheezes, rales, or rhonchi. GASTROINTESTINAL: Abdomen soft, non-tender, nondistended. EXTREMITIES: No edema or joint tenderness. BACK: Nontender without deformity or crepitance. No flank tenderness. NEURO: AOx3. Motor functions grossly nonfocal. SKIN: No rash or erythema of visible areas Initial Vital Signs Initial Vital Signs: Vital Signs Temperature 97.6 F 01/31/25 21:38 Pulse Rate 56 L 01/31/25 21:38 Respiratory Rate 18 01/31/25 21:38 Blood Pressure 168/79 H 01/31/25 21:38 Pulse Oximetry 96 01/31/25 21:38 Oxygen Delivery Method Room Air 01/31/25 21:38 Course Orders Ordered: ED Orders 01/31/25 21:44 XR chest 1V Stat EKG-12 Lead Stat 01/31/25 21:57 CT angio chest PE protocol Stat 01/31/25 21:59 CT abdomen pelvis w con Stat 01/31/25 22:12 Complete Blood Count AUTO DIFF Stat Comprehensive Metabolic Panel Stat Lipase Stat Magnesium Stat NT-proBNP (BNP-Adult 18+) Stat PTT Partial Thromboplastin Tod Stat Prothrombin Time INR Stat Troponin & CK Cardiac Panel Stat Discontinued Medications Albuterol (Albuterol Hfa Prepack) 1 box MISC DIRECTED ONE Stop: 02/01/25 00:50 Aspirin (Aspirin 81 Mg Chew Tab) 324 mg PO NOW ONE Stop: 01/31/25 21:44 Vital Signs Vital signs: Vital Signs - 8 hr 01/31/25 21:38 01/31/25 22:38 01/31/25 23:11 Temperature 97.6 F Pulse Rate 56 L 61 65 Respiratory Rate 18 20 Blood Pressure 168/79 H Pulse Oximetry 96 97 97 Oxygen Delivery Method Room Air 01/31/25 23:30 02/01/25 00:39 02/01/25 00:40 Temperature Pulse Rate 61 57 L Respiratory Rate 21 Blood Pressure Pulse Oximetry 97 97 97 Oxygen Delivery Method Room Air 02/01/25 00:40 Temperature Pulse Rate Respiratory Rate Blood Pressure 165/70 H Pulse Oximetry Oxygen Delivery Method MDM - SOB/Dyspnea Lab Data Attestation: I reviewed the patient's lab results. Lab results narrative: White blood cell count 6200, hemoglobin 12.9, platelets adequate. Glucose 101. BUN 23 with creatinine 0.85 normal GFR. Normal serum CO2 and potassium. Sodium 136 slight low. Liver functions and lipase normal. Troponin negative. BNP not elevated. 01/31/25 22:12 01/31/25 22:12 Labs: Lab Results 01/31/25 Range/Units 22:12 WBC 6.2 (4.5-11.0) X10^3/uL RBC 4.29 (4.0-5.2) X10^6/uL Hgb 12.9 (12.0-16.0) g/dL Hct 38.0 (36-46) % MCV 88.7 (80-100) fL MCH 30.2 (26-34) PG MCHC 34.0 (30-36) % RDW 13.1 (11.6-14.8) % Plt Count 299 (150-400) X10^3/uL Neut % (Auto) 55.4 (50-75) % Lymph % (Auto) 32.1 (25-40) % Posey % (Auto) 8.7 (3-14) % Eos % (Auto) 2.6 (2-4) % Baso % (Auto) 1.2 (0-2) % Neut # (Auto) 3400 (0623-5599) /uL Lymph # (Auto) 2000 (7602-1244) /uL Posey # (Auto) 500 (0-900) /uL Eos # (Auto) 200 (0-450) /uL Baso # (Auto) 100 (0-100) /uL PT 11.8 (9.4-12.5) SECONDS INR 1.0 (0.9-1.3) APTT 28 (25.1-36.5) SECONDS Sodium 136 L (137-145) mmol/L Potassium 4.0 (3.4-5.1) mmol/L Chloride 105 (98-107) mmol/L Carbon Dioxide 22 (22-32) mmol/L BUN 23 H (7-17) mg/dL Creatinine 0.85 (0.52-1.04) mg/dL Estimated GFR > 60 (>60) mL/min BUN/Creatinine Ratio 27.1 H (6-22) Glucose 101 H (70-99) mg/dL Calcium 9.2 (8.4-10.2) mg/dL Magnesium 2.0 (1.6-2.3) mg/dL Total Bilirubin 0.1 L (0.2-1.3) mg/dL AST 31 (14-36) IU/L ALT 21 (<35) IU/L Alkaline Phosphatase 82 (38-126) U/L Total Creatine Kinase 123 (30-135) U/L Troponin I < 0.012 (0.01-0.034) ng/mL NT-Pro-B Natriuret Pep 74 (<125) pg/mL Total Protein 7.3 (6.3-8.2) g/dL Albumin 4.4 (3.5-5.0) g/dL Globulin 2.9 (1.7-4.1) g/dL Albumin/Globulin Ratio 1.5 (1.0-2.8) Lipase 153 (23-300) U/L Imaging Data Chest x-ray: Radiologist's Impression: [address] [address] XRay Report Signed Patient: Janet López MR#: [id number] : 1955 Acct:[id number] Age/Sex: 69 / F Date of Service: 01/31/25 Loc: ED Accession Number: [id number] Procedure: XR chest 1V Ordering Provider: Steffi Locke MD PROCEDURE: XR CHEST 1V INDICATIONS: Chest Pain TECHNIQUE: One view of the chest was acquired. COMPARISON: [facility], CR, XR CHEST 2V, 12/27/2024, 12:28. [facility], CR, XR CHEST 2V, 08/09/2021, 10:33. FINDINGS AND IMPRESSION: On this single view study, no dense airspace disease or pleural effusion is seen. Low lung volumes. Normal heart size. Degenerative osseous changes and partially visualized right shoulder arthroplasty. Dictated by: Alessandro Alcantara M.D. on 01/31/2025 at 22:07 Approved by: Alessandro Alcantara M.D. on 01/31/2025 at 22:07 CTA chest PE protocol: Radiologist's Impression: [address] [address] [address] Scan Report Signed Patient: Janet López MR#: [id number] : 1955 Acct:[id number] Age/Sex: 69 / F Date of Service: 01/31/25 Loc: ED Accession Number: [id number] Procedure: CT angio chest PE protocol Ordering Provider: Steffi Locke MD PROCEDURE: CT ANGIO CHEST PE PROTOCOL INDICATIONS: exertional dyspnea, factor V leiden TECHNIQUE: After the administration of intravenous contrast, 2 mm thick sections acquired from the pulmonary apices to the posterior costophrenic angles. 3-dimensional maximum intensity projection (MIP) coronal and sagittal reformats were then acquired through the thorax. For radiation dose reduction, the following was used: automated exposure control, adjustment of mA and/or kV according to patient size. COMPARISON: [facility], CR, XR CHEST 1V, 01/31/2025, 21:43. FINDINGS: Image quality: Mild motion artifact Lungs and pleura: No airspace consolidation or pleural effusion. Parenchymal mosaic attenuation is noted. Micro nodules (under 6 mm) and suspected calcified granulomas are seen. If the patient is considered at elevated risk for pulmonary malignancy, optional chest CT is suggested in 1 year. Mediastinum, heart, and esophagus: No acute pulmonary embolism. The most distal arteries are somewhat obscured by motion artifact Trace hiatal hernia. Heart size is at the upper limit of normal. No enlarged lymph nodes by size criteria. Chest wall and thyroid: Unremarkable Upper abdomen: Separately dictated Bones: Degenerative osseous changes. No aggressive appearing osseous abnormality. IMPRESSION: No acute pulmonary embolism. No dense airspace disease or pleural effusions. Pulmonary parenchymal mosaic attenuation, which can be seen with chronic small airways disease. Trace hiatal hernia. Other findings above. Dictated by: Alessandro Alcantara M.D. on 02/01/2025 at 0:20 Approved by: Alessandro Alcantara M.D. on 02/01/2025 at 0:24 CT scan - abdomen/pelvis: Radiologist's Impression: [place] [address] CT Scan Report Signed Patient: Janet López MR#: [id number] : 1955 Acct:[id number] Age/Sex: 69 / F Date of Service: 01/31/25 Loc: ED Accession Number: [id number] Procedure: CT abdomen pelvis w con Ordering Provider: Steffi Locke MD PROCEDURE: CT ABDOMEN PELVIS W CON INDICATIONS: LLQ abd pain TECHNIQUE: After the administration of intravenous contrast, axial sections acquired from the lung bases to the pubic symphysis. Coronal and sagittal reformats were performed. For radiation dose reduction, the following was used: automated exposure control, adjustment of mA and/or kV according to patient size. COMPARISON: [facility], CT, CT ABDOMEN PELVIS W CON, 08/11/2024, 12:41. FINDINGS: Image quality: Diagnostic Lower chest: Unremarkable lung bases Liver: Slight surface nodularity, which can be seen with chronic liver disease Gallbladder and biliary system: Prominent biliary system post cholecystectomy Pancreas: No ductal dilation Spleen: Nonenlarged. Small inferior pole nodule possibly cyst or hemangioma, stable Adrenals: Multiple left adrenal nodules again seen, possibly adenomas. Kidneys: No solid renal mass. No hydronephrosis. Vessels and lymph nodes: The main portal vein appears patent. No abdominal aortic aneurysm. Mild aortoiliac atherosclerotic calcifications. Bowel and peritoneum: No bowel obstruction. Duodenal diverticula are seen. Colonic diverticula also present. Mild focal inflammation seen in the proximal sigmoid. Moderate overall colonic fecal loading. No drainable abscess or ascites. Body wall: Unremarkable Pelvis: Bladder is under distended. No significant uterine abnormality Bones: There are degenerative osseous changes. Similar L1 height loss. IMPRESSION: Uncomplicated appearing sigmoid diverticulitis. Left adrenal nodules, likely adenomas. This could be confirmed with adrenal protocol imaging. Other findings above. Dictated by: Alessandro Alcantara M.D. on 02/01/2025 at 0:24 Approved by: Alessandro Alcantara M.D. on 02/01/2025 at 0:28 ECG Data Attestation: I personally reviewed and interpreted this ECG as follows: Interpretation: 2151, sinus bradycardia with rate of 59, no obvious ST segment elevation or depression changes. T-wave inversion noted lead 2 but upright in other contiguous inferior leads. SC 128, QRS 92, QTC 439. MDM Narrative Medical decision making narrative: 69-year-old female with shortness of breath this evening, history of Leiden factor V mutation on aspirin but no other blood thinner medications, no history of blood clots to legs or lungs, had family history of unprovoked VTE prompting testing of family members including herself. Day 2 of oral antibiotics for clinical diagnosis of diverticulitis which seems to be improving. Intermittent chest discomfort, atypical chest pain, prior nuclear medicine cardiac stress testing negative, awaiting CTA cardiac study as an outpatient through her floor care specialist Dr. Carnes. Afebrile, SIRS screen negative. Lungs clear. No respiratory distress. No lower extremity edema. EKG shows sinus bradycardia with rate of 59, no obvious ischemic changes. Chest x-ray no lobar infiltrates. See radiology report. Lab data: White blood cell count 6200, hemoglobin 12.9, platelets adequate. Glucose 101. BUN 23 with creatinine 0.85 normal GFR. Normal serum CO2 and potassium. Sodium 136 slight low. Liver functions and lipase normal. Troponin negative. BNP not elevated. CTA chest showed no pulmonary embolus, did mention ?pulmonary parenchymal mosaic attenuation which can be seen with chronic small airways disease and mentioned trace hiatal hernia. See radiology report. CT abdomen and pelvis, showed uncomplicated sigmoid diverticulitis, incidental left adrenal nodules likely adenomas. See radiology report. Copies of CTA/CT scans provided to patient with explanation of findings, with physician at bedside. Unexplained episode of shortness of breath, history of factor 5 Leiden mutation, CT angiogram showed no pulmonary embolus or acute pulmonary process. Possible chronic small reactive airways changes per Radiology. Trial of albuterol with spacer to take 2 puffs 4 times daily for this next week or so and then as needed. Patient seemed amenable, inhaler/spacer dispensed. Discharged home with physician . Patient and seemed satisfied with workup, they are most worried about pulmonary embolism was transient chest pain. EKG and troponin negative. Offered repeat interval troponin, they declined. They would like to go home. They will follow up with their floor care specialist Dr. Carnes for cardiac CTA upcoming, and continued further workup as an outpatient for now. Advised to continue aspirin and other chronic medications as prescribed. Return precautions discussed. Discharge Plan Departure Patient Disposition: Home Clinical Impression: Shortness of breath, History of factor V Leiden mutation, Diverticulitis Instructions: DI for Asthma -- Adult, DI for Diverticulitis Activity Restrictions/Additional Instructions: History of atypical chest pain awaiting further cardiology evaluation with CT angiogram cardiac test still to be performed in follow up. History of factor 5 Leiden mutation, at risk for hypercoagulable state, found by family testing after family member had unprovoked blood clotting. No history of blood clots to legs or lungs personally known. Recent clinical diagnosis of diverticulitis, taking oral ciprofloxacin and metronidazole antibiotics, with improving symptoms and no significant tenderness on examination of the abdomen. Shortness of breath tonight of unclear cause, no fever or recent cough. Lungs clear, speaking in full sentences, without crackles or wheezing on examination. CT angiogram of the chest was done primarily to help rule out blood clots to the lungs, which were not confirmed, though the radiology report did mentioned small airways changes consider reactive airways. Trial of inhaler albuterol with spacer to consider 2 puffs 4 times daily as needed, dispensed from the emergency department. CT abdomen and pelvis imaging did confirm uncomplicated sigmoid diverticulitis at this time, without perforation or abscess or obstructive changes. Continue taking your antibiotics as prescribed. EKG and blood testing not suggestive of heart attack at this time. We did discuss a repeat interval troponin blood test, declined for now. Follow up with your cardiologists for further evaluation as planned. Return to this/nearest emergency department for any change worsening symptoms or any concerns prior. Prescriptions: No Action levothyroxine 88 mcg capsule 88 mcg PO DAILY rosuvastatin 20 mg tablet 20 mg PO DAILY estradiol [Yuvafem] 10 mcg tablet 10 mcg vaginal DAILY 14 Days Qty: 30 3RF Rx Instructions: Place 1 tab in the vagina daily for 2 wks and then twice a week aspirin [Adult Low Dose Aspirin] 81 mg tablet,delayed release (DR/EC) 81 mg PO DAILY cholecalciferol (vitamin D3) 5,000 unit capsule 5,000 unit PO DAILY turmeric root extract 500 mg capsule 1,000 mg PO DAILY rabeprazole 20 mg tablet,delayed release (DR/EC) 20 mg PO DAILY Referrals: Joseph Herrera MD [Primary Care Provider, [facility]] Stand Alone Forms: Patient Portal/API
[2025-01-31 23:30] VITALS: PULSE 61; RESP 21; O2SAT 97
[2025-02-01 00:39] VITALS: O2SAT 97
[2025-02-01 00:40] VITALS: BP 165/70; PULSE 57; O2SAT 97
== END 2025-02-01 01:00 | disposition home or self-care (01) ==
PROVIDERS: Emergency Medicine; Emergency Provider Emergency Medicine; PCP Family Medicine
DX: R06.02 Shortness of breath (principal); D68.51 Activated protein C resistance; K57.32 Diverticulitis of large intestine without perforation or abscess without bleeding; R00.1 Bradycardia, unspecified; Z79.82 Long term (current) use of aspirin
CPT/HCPCS: 36415; 71045; 71275; 74177; 80053; 82550; 83690; 83735; 83880; 84484; 85025; 85610; 85730; 93005; 99283; 99284; Q9967

== ENCOUNTER → 2025-02-06 10:07 | Outpatient (CLI) | payer MEDICARE, SELFPAY ==
[2025-02-06 10:46] LABS: HEMOLYSIS < 15 (0-50); Iron 117 ug/dL (37-170)
[2025-02-06 10:58] LABS: Percent Iron Saturation 37 % (15-50); Total Iron Binding Capacity 320 ug/dL (265-497); Transferrin 290 mg/dL (206-381)
[2025-02-07 13:47] LABS: Ferritin 112 ng/mL (11-264)
== END ==
PROVIDERS: PCP Family Medicine; Referring Provider Nurse Practitioner; Visit Provider Nurse Practitioner
DX: E83.10 Disorder of iron metabolism, unspecified (principal); G25.81 Restless legs syndrome
CPT/HCPCS: 36415; 82728; 83540; 83550

== ENCOUNTER → 2025-02-27 14:53 | Outpatient (CLI) | payer MEDICARE, SELFPAY ==
--- NOTE | 2025-02-27 15:03 | DI.RAD.S_ITS ---
PROCEDURE: XR HIP W PEL IF DONE BILAT 2V INDICATIONS: hip pain TECHNIQUE: AP pelvis with lateral view(s) of the bilateral hip(s). COMPARISON: [facility], CR, XR HIP W PEL IF DONE RT 2V, 01/24/2019, 16:34. FINDINGS: Bones: No fractures or dislocations. Pelvic ring appears intact. No suspicious bony lesions. Bilateral SI joint sclerosis. Lower lumbar spine degenerative disease. Moderate bilateral hip joint space narrowing and small osteophytes. Soft tissues: The visualized bowel gas pattern is normal. No suspicious soft tissue calcifications. IMPRESSION: No acute bony abnormality. Moderate bilateral hip arthritis. Dictated by: Jessica Pena M.D. on 02/28/2025 at 13:13 Approved by: Jessica Pena M.D. on 02/28/2025 at 13:14
== END ==
LOC: RAD 14:58
PROVIDERS: PCP Family Medicine; Referring Provider Family Medicine; Visit Provider Family Medicine
DX: M16.0 Bilateral primary osteoarthritis of hip (principal); M25.551 Pain in right hip; M25.552 Pain in left hip
CPT/HCPCS: 73521